=== PATIENT | male | born 1950 | race Caucasian/White ===

== ENCOUNTER 2018-03-19 08:06 | Inpatient (IN) ==
--- OUTSIDE RECORDS SUMMARY | 2018-03-19 08:16 | External Medical Summary | Referral Summary ---
:1950 Author Organization [facility] Address [address] [place] [address] [place] [id number] Care Team Providers Name Role Phone Ken Salgado V Primary Care Physician Encounter VC Date(s): 05/28/17 - 05/28/17 [facility] [address] [place] [phone] [place] Discharge Disposition: 01-Home or Self Care Attending Physician: Ken Salgado MD Admitting Physician: Ken Salgado MD Vital Signs Most recent to oldest [Reference Range]: 1 Blood Pressure [90-140/60-90 mmHg] 148/78 mmHg *HI* (05/28/17 9:15 AM) Problem List Condition Effective Dates Status Health Status Informant Arthritis(Confirmed) Active Chronic lymphocytic leukemia (CLL), Active B-cell(Confirmed) Sleep related Active hypoventilation/hypoxemia in other disease(Confirmed) Bronchitis, not spec Active acute/chronic(Confirmed)1 COPD(Confirmed) Active Cardiac dysrhythmia, Active unspecified(Confirmed)2 Hyperplastic polyp(Confirmed)3 2009 Active Dyslipidemia(Confirmed) Active Rib fractures(Confirmed) < 06/19/14 Resolved Unspecified hearing loss(Confirmed) Active Morbid obesity(Confirmed) Active patient Obesity (disorder)(Confirmed) Active Severe obstructive sleep Active apnea(Confirmed) Atrial fibrillation Active (disorder)(Confirmed) Other emphysema(Confirmed)4 Active Pure hypercholesterolemia(Confirmed) Active Sleep apnea (disorder)(Confirmed)5 Active Type 2 diabetes mellitus, Active controlled(Confirmed) Varicella w/o Active complication(Confirmed)6 1See conversion document.2See conversion document.3See NextGen.4See conversion document.5C-pap. See NextGen.6See conversion document. Allergies, Adverse Reactions, Alerts Substance Reaction Severity Status lovastatin Active Medications atorvastatin 10 mg oral tablet See Instructions, TAKE ONE TABLET BY MOUTH ONCE DAILY, # 90 tabs, 2 Refill(s), eRx: [place] [id number] Start Date: 10/06/16 Status: OrderedCo-Q10 100 mg, Oral, BID, 0 Refill(s) Start Date: 03/15/14 Status: Ordereddigoxin 250 mcg (0.25 mg) oral tablet See Instructions, TAKE ONE TABLET BY MOUTH ONCE DAILY, # 30 tabs, 5 Refill(s), eRx: [place] [id number], TAKE ONE TABLET BY MOUTH ONCE DAILY Start Date: 04/30/17 Status: OrderedDilTIAZem Hydrochloride ER 360 mg/24 hours oral capsule, extended release See Instructions, TAKE ONE CAPSULE BY MOUTH ONCE DAILY, # 90 caps, eRx: [place] [id number] Start Date: 04/30/17 Status: OrderedEliquis 5 mg oral tablet 5 mg 1 tabs, Oral, BID, # 180 tabs, 0 Refill(s), Pharmacy: [place] [id number] Start Date: 05/08/17 Status: OrderedGlucometer strips (DME) DME Item USE TO CHECK BLOOD SUGAR 1 TIME DAILY ONE TOUCH ULTRA BLUE FOR DIABETES TYPE 2E11.9, See Instructions, # 100 Each, 0 Refill(s), Pharmacy: [place] [id number], USE TO CHECK BLOOD SUGAR 1 TIME DAILY ONE TOUCH ULTRA BLUE FOR DIABETES TYPE 2... Start Date: 09/18/15 Status: OrderedGlucometer strips (DME) DME Item PT USES ONE T OUCH ULTRA BLUE TEST STRIPS TO CHECK BLOOD SUGAR ONE TIME DAILY DX E11.9, See Instructions, # 100 Each, 1 Refill(s), Pharmacy: [place] [id number], PT USES ONE T OUCH ULTRA BLUE TEST STRIPS TO CHECK BLOOD SUGAR ONE TIME NICOLAS... Start Date: 01/29/17 Status: OrderedMiscellaneous DME DME Item One touch ultra 2 test strips. Test once daily. Dx:250.00, See Instructions, # 1 boxes,0 Refill(s), Pharmacy: [place] [id number], One touch ultra 2 test strips. ; Test once daily. ; Dx:250.00, Supply Start Date: 04/04/15 Status: OrderedMiscellaneous DME DME Item Delica lancets Test once daily Dx: 250.00, See Instructions, # 1 boxes, 0 Refill(s), Pharmacy: [place] [id number], Deidre lancets; Test once daily; Dx: 250.00, Supply Start Date: 04/04/15 Status: OrderedMiscellaneous DME DME Item ONE TOUCH ULTRA BLUE T EST STRIPS TO CHECK BS ONE TIME DAILY FOR DX E11.9, See Instructions, # 100 Each, 0 Refill(s), Pharmacy: [place] [id number], ONE TOUCH ULTRA BLUE T EST STRIPS TO CHECK BS ONE TIME DAILY FOR DX E11.9 , Supply Start Date: 10/06/16 Status: OrderedONE TOUCH ULTRA BLUE TEST STP See Instructions, USE ONE STRIP TO CHECK GLUCOSE ONCE DAILY, # 100 strip, eRx: [place] [id number], USE ONE STRIP TO CHECK GLUCOSE ONCE DAILY Start Date: 06/09/16 Status: OrderedSpiriva 18 mcg inhalation capsule See Instructions, INHALE ONE DOSE BY MOUTH ONCE DAILY, # 30 caps, 5 Refill(s), eRx: [place] [id number] Start Date: 02/06/17 Status: OrderedSymbicort 160 mcg-4.5 mcg/inh inhalation aerosol See Instructions, INHALE TWO PUFFS BY MOUTH IN THE MORNING AND IN THE EVENING, # 3 Each, 3 Refill(s), Pharmacy: [place] [id number] Start Date: 07/18/16 Status: Orderedtriamterene-hydrochlorothiazide 37.5 mg-25 mg oral tablet See Instructions, TAKE ONE TABLET BY MOUTH ONCE DAILY, # 90 tabs, eRx: [place] [id number] Start Date: 04/30/17 Status: OrderedTylenol Extra Strength 500 mg, Oral, q6hr, 0 Refill(s) Start Date: 03/15/14 Status: Ordered Immunizations Given and Recorded Vaccine Date Status Refusal Reason pneumococcal 23-polyvalent vaccine 10/08/16 Given pneumococcal 23-polyvalent vaccine 02/22/08 Recorded influenza virus vaccine, inactivated 07/08/16 Given influenza virus vaccine, inactivated 06/01/15 Given influenza virus vaccine, inactivated 08/14/14 Recorded pneumococcal 13-valent conjugate vaccine 09/05/15 Given influenza virus vaccine, live 06/16/11 Given tetanus-diphth toxoids (Td) adult/adol 08/18/97 Given Procedures Procedure Date Related Diagnosis Body Site Cancer of skin, squamous cell1 10/02/16 Hernia repair2 2014 Knee replacement3 2014 Atrial fibrillation4 2013 Rib fractures5 2013 Pneumonia6 2011 Colonoscopy7 08/08/10 Knee replacement8 12/24/09 Atrial flutter9 2009 Catheter ablation for cardiac arrhythmia 2010 Joint domokhvntvx89 2009 Transesophageal echo11 2009 Inguinal herniorrhaphy - 1992 Circumcision 1949 1left forearm, removed in the operating [id number] ventral hernia [id number] with rib fractures and hypoxemia.3Tfmkyzyultuaotv1Fnykencwmrlu xrirl6Bzxvo4Zkhvkiggavdqrfw64Wyv conversion document.11See NextGen.12Left Social History Social History Type Response Smoking Status Former smoker; Tobacco use per day: More than 1 pack; Number of years: 40; Total pack years: 80; entered on: 03/15/14 Assessment and Plan Extracted from: Title: Ambulatory Patient Education Author: Garrick Wright RN Date: 05/28/17 Preventive Health Exercising to Stay Healthy Exercising regularly is important. It has many health benefits, such as: Improving your overall fitness, flexibility, and endurance. Increasing your bone density. Helping with weight control. Decreasing your body fat. Increasing your muscle strength. Reducing stress and tension. Improving your overall health. In order to become healthy and stay healthy, it is recommended that you do moderate-intensity and vigorous-intensity exercise. You can tell that you are exercising at a moderate intensity if you have a higher heart rate and faster breathing, but you are still able to hold a conversation. You can tell that you are exercising at a vigorous intensity if you are breathing much harder and faster and cannot hold a conversation while exercising. HOW OFTEN SHOULD I EXERCISE? Choose an activity that you enjoy and set realistic goals. Your health care provider can help you to make an activity plan that works for you. Exercise regularly as directed by your health care provider. This may include: Doing resistance training twice each week, such as: Push-ups. Sit-ups. Lifting weights. Using resistance bands. Doing a given intensity of exercise for a given amount of time. Choose from these options: 150 minutes of moderate-intensity exercise every week. 75 minutes of vigorous-intensity exercise every week. A mix of moderate-intensity and vigorous-intensity exercise every week. Children, women, people who are out of shape, people who are overweight, and older adults may need to consult a health care provider for individual recommendations. If you have any sort of medi omkar condition, be sure to consult your health care provider before starting a new exercise program. WHAT ARE SOME EXERCISE IDEAS? Some moderate-intensity exercise ideas include: Walking at a rate of 1 mile in 15 minutes. Biking. Hiking. Golfing. Dancing. Some vigorous-intensity exercise ideas include: Walking at a rate of at least 4.5 miles per hour. Jogging or running at a rate of 5 miles per hour. Biking at a rate of at least 10 miles per hour. Lap swimming. Roller-skating or in-line skating. Cross-country skiing. Vigorous competitive sports, such as football, basketball, and soccer. Jumping rope. Aerobic dancing. WHAT ARE SOME EVERYDAY ACTIVITIES THAT CAN HELP ME TO GET EXERCISE? Yard work, such as: Pushing a vocational training teacher. Raking and bagging leaves. Washing and waxing your car. Pushing a stroller. Shoveling snow. Gardening. Washing windows or floors. HOW CAN I BE MORE ACTIVE IN MY DAY-TO-DAY ACTIVITIES? Use the stairs instead of the elevator. Take a walk during your lunch break. If you drive, park your car farther away from work or school. If you take public transportation, get off one stop early and walk the rest of the way. Make all of your phone calls while standing up and walking around. Get up, stretch, and walk around every 30 minutes throughout the day. WHAT GUIDELINES SHOULD I FOLLOW WHILE EXERCISING? Do not exercise so much that you hurt yourself, feel dizzy, or get very short of breath. Consult your health care provider before starting a new exercise program. Wear comfortable clothes and shoes with good support. Drink plenty of water while you exercise to prevent dehydration or heat stroke. Body water is lost during exercise and must be replaced. Work out until you breathe faster and your heart beats faster. This information is not intended to replace advice given to you by your health care provider. Make sure you discuss any questions you have with your health care provider. Document Released: 08/29/2011 Document Revised: 08/17/2015 Document Reviewed: 12/28/2014 [employer] Interactive Patient Education 2017 [employer] Fall Prevention in the Home Falls can cause injuries. They can happen to people of all ages. There are many things you can do to make your home safe and to help prevent falls. WHAT CAN I DO ON THE OUTSIDE OF MY HOME? Regularly fix the edges of walkways and driveways and fix any cracks. Remove anything that might make you trip as you walk through a door, such as a raised step or threshold. Trim any bushes or trees on the path to your home. Use bright outdoor lighting. Clear any walking paths of anything that might make someone trip, such as rocks or tools. Regularly check to see if handrails are loose or broken. Make sure that both sides of any steps have handrails. Any raised decks and porches should have guardrails on the edges. Have any leaves, snow, or ice cleared regularly. Use sand or salt on walking paths during winter. Clean up any spills in your garage right away. This includes oil or grease spills. WHAT CAN I DO IN THE BATHROOM? Use night lights. Install grab bars by the toilet and in the tub and shower. Do not use towel bars as grab bars. Use non-skid mats or decals in the tub or shower. If you need to sit down in the shower, use a plastic, non-slip stool. Keep the floor dry. Clean up any water that spills on the floor as soon as it happens. Remove soap buildup in the tub or shower regularly. Attach bath mats securely with double-sided non-slip rug tape. Do not have throw rugs and other things on the floor that can make you trip. WHAT CAN I DO IN THE BEDROOM? Use night lights. Make sure that you have a light by your bed that is easy to reach. Do not use any sheets or blankets that are too big for your bed. They should not hang down onto the floor. Have a firm chair that has side arms. You can use this for support while you get dressed. Do not have throw rugs and other things on the floor that can make you trip. WHAT CAN I DO IN THE KITCHEN? Clean up any spills right away. Avoid walking on wet floors. Keep items that you use a lot in hpcn-ik-cwuuj places. If you need to reach something above you, use a strong step stool that has a grab bar. Keep electrical cords out of the way. Do not use floor dominican or wax that makes floors slippery. If you must use wax , use non-skid floor wax. Do not have throw rugs and other things on the floor that can make you trip. WHAT CAN I DO WITH MY STAIRS? Do not leave any items on the stairs. Make sure that there are handrails on both sides of the stairs and use them. Fix handrails that are broken or loose. Make sure that handrails are as long as the stairways. Check any carpeting to make sure that it is firmly attached to the stairs. Fix any carpet that is loose or worn. Avoid having throw rugs at the top or bottom of the stairs. If you do have throw rugs, attach them to the floor with carpet tape. Make sure that you have a light switch at the top of the stairs and the bottom of the stairs. If you do not have them, ask someone to add them for you. WHAT ELSE CAN I DO TO HELP PREVENT FALLS? Wear shoes that: Do not have high heels. Have rubber bottoms. Are comfortable and fit you well. Are closed at the toe. Do not wear sandals. If you use a stepladder: Make sure that it is fully opened. Do not climb a closed stepladder. Make sure that both sides of the stepladder are locked into place. Ask someone to hold it for you, if possible. Clearly nathan and make sure that you can see: Any grab bars or handrails. First and last steps. Where the edge of each step is. Use tools that help you move around (mobility aids) if they are needed. These include: Canes. Walkers. Scooters. Crutches. Turn on the lights when you go into a dark area. Replace any light bulbs as soon as they burn out. Set up your furniture so you have a clear path. Avoid moving your furniture around. If any of your floors are uneven, fix them. If there are any pets around you, be aware of where they are. Review your medicines with your doctor. Some medicines can make you feel dizzy. This can increase your chance of falling. Ask your doctor what other things that you can do to help prevent falls. This information is not intended to replace advice given to you by your health care provider. Make sure you discuss any questions you have with your health care provider. Document Released: 05/23/2010 Document Revised: 12/11/2015 Document Reviewed: 08/31/2015 [employer] Patient Education 2017 [employer] No follow up information was provided.
--- OUTSIDE RECORDS SUMMARY | 2018-03-19 08:16 | External Medical Summary | Referral Summary ---
:1950 Author Organization [facility] Address [address] [place] [address] Care Team Providers Name Role Phone Ken Salgado V Primary Care Physician Encounter VC Date(s): 12/30/17 - 12/31/17 [facility] [address] [place] [address] [place] [phone] Encounter Diagnosis Atrial fibrillation (disorder) (Discharge Diagnosis) - 12/31/17 S/P TAVR (12/30/17) (Discharge Diagnosis) - 12/31/17 Aortic valve stenosis (Discharge Diagnosis) - 12/31/17 Type 2 diabetes mellitus, controlled (Discharge Diagnosis) - 12/31/17 Chronic lymphocytic leukemia (CLL), B-cell (Discharge Diagnosis) - 12/31/17 Discharge Disposition: 01-Home or Self Care Attending Physician: Julien Shelton MD Admitting Physician: Julien Shelton MD Referring Physician: Julien Shelton MD Vital Signs Most recent to oldest [Reference Range]: 1 Temperature Tympanic [36.6-38.1 degC] 36.4 degC *LOW* (12/30/17 8:42 AM) Temperature Temporal Artery [36.3-37.8 degC] 36.9 degC (12/31/17 4:00 AM) Peripheral Pulse Rate [60-100 bpm] 106 bpm *HI* (12/31/17 8:45 AM) Peripheral Pulse Rate with Activity 127 bpm (12/31/17 8:45 AM) Heart Rate Monitored [60-100 bpm] 107 bpm *HI* (12/31/17 2:00 PM) Respiratory Rate 20 br/min (12/31/17 2:03 PM) Blood Pressure [90-140/60-90 mmHg] 130/82 mmHg (12/31/17 2:00 PM) Systolic Blood Pressure with Activity 148 mmHg (12/31/17 8:45 AM) Diastolic Blood Pressure with Activity 91 mmHg (12/31/17 8:45 AM) Mean Arterial Pressure, Cuff 121 mmHg (12/31/17 2:00 PM) SpO2 94 % (12/31/17 1:00 PM) Problem List Condition Effective Dates Status Health Status Informant Acute pain(Confirmed) Active Aortic valve stenosis(Confirmed) Active Arthritis(Confirmed) Active Chronic lymphocytic leukemia (CLL), Active B-cell(Confirmed) Sleep related Active hypoventilation/hypoxemia in other disease(Confirmed) Bronchitis, not spec Active acute/chronic(Confirmed)1 COPD(Confirmed) Active Cardiac dysrhythmia, Active unspecified(Confirmed)2 Hyperplastic polyp(Confirmed)3 2009 Active Dyslipidemia(Confirmed) Active Rib fractures(Confirmed) < 06/19/14 Resolved Unspecified hearing loss(Confirmed) Active S/P TAVR (transcatheter aortic valve Active replacement)(Confirmed) Impaired gas exchange(Confirmed)4 Active Morbid obesity(Confirmed) Active patient Obesity (disorder)(Confirmed) Active Severe obstructive sleep Active apnea(Confirmed) Atrial fibrillation Active (disorder)(Confirmed) Other emphysema(Confirmed)5 Active Pure hypercholesterolemia(Confirmed) Active Sleep apnea (disorder)(Confirmed)6 Active Tissue perfusion Active alteration(Confirmed)7 Type 2 diabetes mellitus, Active controlled(Confirmed) Varicella w/o Active complication(Confirmed)8 1See conversion document.2See conversion document.3See NextGen.4Problem added automatically by system based on initiation of Impaired Gas Exchange Plan of [id number] conversion document.6C-pap. See NextGen.7Problem added automatically by system based on initiation of Tissue Perfusion Cerebral Plan of Thxh9Bsy conversion document. Allergies, Adverse Reactions, Alerts Substance Reaction Severity Status lovastatin Active Medications aspirin 81 mg oral tablet, chewable 81 mg 1 tabs, Oral, Daily, 0 Refill(s) Start Date: 12/31/17 Status: Orderedatorvastatin 10 mg oral tablet 10 mg 1 tabs, Oral, Daily, # 90 tabs, 1 Refill(s), Pharmacy: [id number] Start Date: 07/05/17 Status: Orderedclopidogrel 75 mg oral tablet 75 mg 1 tabs, Oral, Daily, # 90 tabs, 3 Refill(s), other reason (Rx) Start Date: 12/31/17 Status: OrderedCo-Q10 100 mg, Oral, BID, 0 Refill(s) Start Date: 03/15/14 Status: OrderedDilTIAZem Hydrochloride ER 360 mg/24 hours oral capsule, extended release 360 mg 1 caps, Oral, Daily, # 90 caps, 1 Refill(s), Pharmacy: [id number] Start Date: 08/04/17 Status: Orderedfurosemide 20 mg oral tablet 20 mg 1 tabs, Oral, Daily, # 90 tabs, 3 Refill(s), other reason (Rx) Start Date: 12/31/17 Status: OrderedmetFORMIN 1,000 mg, Oral, qAM, Resume on 01/02/18, 0 Refill(s) Start Date: 12/30/17 Status: OrderedmetFORMIN 500 mg, Oral, qPM, Resume on 01/02/18, 0 Refill(s) Start Date: 12/30/17 Status: Orderedpotassium chloride 10 mEq oral tablet, extended release 10 mEq 1 tabs, Oral, Daily, # 90 tabs, 3 Refill(s), other reason (Rx) Start Date: 12/31/17 Status: OrderedSpiriva 18 mcg, Inhalation, Daily, 0 Refill(s) Start Date: 12/03/17 Status: OrderedSymbicort 160 mcg-4.5 mcg/inh inhalation aerosol 2 puffs, Inhalation, BID, 0 Refill(s) Start Date: 12/03/17 Status: OrderedTylenol Extra Strength 500 mg, Oral, q6hr, as needed for pain, 0 Refill(s) Start Date: 03/15/14 Status: Orderedwarfarin 5 mg oral tablet 5 mg 1 tabs, Oral, Daily, # 30 tabs, 3 Refill(s), other reason (Rx) Start Date: 12/31/17 Status: Ordered Results Blood Gases Most recent to oldest [Reference Range]: 1 pH Venous POC [7.32-7.42] 7.38 (12/30/17 7:41 AM) PCO2 Venous POC [41-51 mmHg] 42 mmHg (12/30/17 7:41 AM) PO2 Venous POC [80-100 mmHg] 124 mmHg *HI* (12/30/17 7:41 AM) Total CO2 Venous POC [25-29 mEq/L] 26 mEq/L (12/30/17 7:41 AM) Bicarbonate Venous POC [24-28 mEq/L] 25 mEq/L (12/30/17 7:41 AM) Base Excess Venous POC [0-4] 0 (12/30/17 7:41 AM) O2 Saturation Venous POC [90.0-97.0 %] 99.0 % *HI* (12/30/17 7:41 AM) Hematology Most recent to oldest [Reference Range]: 1 WBC [4.8-10.8 10*3/uL] 27.4 10*3/uL *HI* (12/31/17 4:01 AM) RBC [4.60-6.20] 3.88 *LOW* (12/31/17 4:01 AM) Hgb [14.0-18.0 gm/dL] 11.3 gm/dL *LOW* (12/31/17 4:01 AM) Hct [42.0-52.0 %] 35.4 % *LOW* (12/31/17 4:01 AM) MCV [82.0-99.0 fL] 91.2 fL (12/31/17 4:01 AM) MCH [27.0-32.0 pg] 29.1 pg (12/31/17 4:01 AM) MCHC [32.0-36.0 gm/dL] 31.9 gm/dL *LOW* (12/31/17 4:01 AM) RDW [11.5-14.5 %] 15.8 % *HI* (12/31/17 4:01 AM) Platelet [150-400 10*3/uL] 131 10*3/uL *LOW* (12/31/17 4:01 AM) MPV [9.4-12.3 fL] 10.4 fL (12/31/17 4:01 AM) Coagulation Most recent to oldest [Reference Range]: 1 INR [0.9-1.2] 1.1 (12/31/17 12:44 PM) PTT [25.0-35.0 seconds] 275.8 seconds 1 *HHI* (12/30/17 9:36 AM) 1Result Comment: Critical value called, and read-back verified. Called to Almaz Hearn 12/30/2017 10:21Chemistry Most recent to oldest [Reference Range]: 1 Sodium Lvl [136-144 mEq/L] 136 mEq/L (12/31/17 4:01 AM) Potassium Lvl [3.6-5.1 mEq/L] 3.7 mEq/L 1 (12/31/17 4:01 AM) Chloride [99-109 mEq/L] 104 mEq/L (12/31/17 4:01 AM) CO2 [22-32 mEq/L] 26 mEq/L (12/31/17 4:01 AM) AGAP [3-20 mEq/L] 6 mEq/L (12/31/17 4:01 AM) BUN [4-20 mg/dL] 16 mg/dL (12/31/17 4:01 AM) Glucose Lvl [70-100 mg/dL] 177 mg/dL *HI* (12/31/17 4:01 AM) Creatinine Lvl [0.64-1.27 mg/dL] 0.99 mg/dL (12/31/17 4:01 AM) eGFR [>60 mL/min] >60 mL/min 2 (12/31/17 4:01 AM) Calcium Lvl [8.6-10.0 mg/dL] 7.5 mg/dL *LOW* (12/31/17 4:01 AM) Magnesium Lvl [1.8-2.5 mg/dL] 1.9 mg/dL (12/30/17 9:36 AM) Sodium Venous NPT [136-144 mEq/L] 139 mEq/L (12/30/17 7:41 AM) Potassium Venous NPT [3.6-5.1 mEq/L] 3.7 mEq/L 3 (12/30/17 7:41 AM) Calcium Ionized Venous NPT [1.19-1.41 mmol/L] 1.12 mmol/L *LOW* (12/30/17 7:41 AM) Glucose Venous NPT [70-100 mg/dL] 168 mg/dL *HI* (12/30/17 7:41 AM) HCT Venous NPT 36.0 % (12/30/17 7:41 AM) HGB Khanh NPT 12.2 gm/dL (12/30/17 7:41 AM) Activated Clotting Time NPT [100-146 seconds] 159 seconds *HI* (12/30/17 8:35 AM) Blood Glucose, Capillary [70-100 mg/dL] 178 mg/dL *HI* (12/30/17 5:35 AM) 1Result Comment: Hemolyzed specimen. The following tests may be affected: ALT, AST, Ammonia, Iron, Potassium, LDH, Amylase, CPK, and Total Bilirubin.2Result Comment : Multiply eGFR results by 1.21 for race.3Result Comment: This test was performed on a whole blood specimen. The presence or absence of hemolysis cannot be assessed. Hemolysis can falsely elevate potassium levels. Normals are for venous specimens only.Blood Bank Results Most recent to oldest [Reference Range]: 1 ABO/Rh AB POS (12/30/17 5:51 AM) Antibody Screen Tube NEG (12/30/17 5:51 AM) Immunizations Given and Recorded Vaccine Date Status Refusal Reason pneumococcal 23-polyvalent vaccine 10/08/16 Given pneumococcal 23-polyvalent vaccine 02/22/08 Recorded influenza virus vaccine, inactivated 07/08/16 Given influenza virus vaccine, inactivated 06/01/15 Given influenza virus vaccine, inactivated 08/14/14 Recorded pneumococcal 13-valent conjugate vaccine 09/05/15 Given influenza virus vaccine, live 06/16/11 Given tetanus-diphth toxoids (Td) adult/adol 08/18/97 Given Procedures Procedure Date Related Diagnosis Body Site Status Replacement Aortic Valve Transcatheter 12/30/17 Completed Transfemoral Approach1 Catheterization Left Heart with 12/09/17 Completed Coronary Angiography2 Cancer of skin, squamous cell3 10/02/16 Completed Hernia repair4 2013 Completed Knee replacement5 2013 Completed Atrial fibrillation6 2012 Completed Rib fractures7 2012 Completed Pneumonia8 2010 Completed Colonoscopy9 08/08/10 Completed Knee dglsbbuehnw56 12/24/09 Completed Atrial bucwuyl81 2010 Completed Catheter ablation for cardiac 2009 Completed arrhythmia Joint asvqkkkjmjz28 2010 Completed Transesophageal echo13 2009 Completed Inguinal herniorrhaphy - xsvzccymtg88 1992 Completed Circumcision 1948 Completed 1auto-populated from documented surgical wqro5mkji-qrlhiduwi from documented surgical ycmi7mhci forearm, removed in the operating hytr8Ukgivqllepht ventral hernia rlavxs1Lzig0Njpypzdeoiyxvhy2Webbtbtkixch with rib fractures and hypoxemia.3Wzrrxmoldkzenoc9Lihbtzcbbsxg nqffw30Afiat94Dzjgrmfdwojwwni41Bxp conversion document.13See NextGen.14Left Social History Social History Type Response Smoking Status Former smoker; Tobacco use per day: More than 1 pack; Number of years: 40; Total pack years: 80; entered on: 03/15/14
--- OUTSIDE RECORDS SUMMARY | 2018-03-19 08:16 | External Medical Summary | Referral Summary ---
:1950 Author Organization [facility] Address [address] [place] [address] Care Team Providers Name Role Phone Ken Salgado V Primary Care Physician Favio Cat Primary Care Physician Encounter [facility] [id number] Date(s): 11/18/17 - 11/18/17 [facility] [address], [place] [address] Encounter Diagnosis Atrial fibrillation (disorder) (Discharge Diagnosis) - 11/18/17 Aortic stenosis (Discharge Diagnosis) - 11/18/17 COPD (chronic obstructive pulmonary disease) (Discharge Diagnosis) - 11/18/17 Obesity (Discharge Diagnosis) - 11/18/17 Severe sleep apnea (Discharge Diagnosis) - 11/18/17 Chronic lymphocytic leukemia (CLL), B-cell (Discharge Diagnosis) - 11/18/17 Discharge Disposition: 01-Home or Self Care Attending Physician: Hero Galdamez MD Admitting Physician: Hero Galdamez MD Vital Signs Most recent to oldest [Reference Range]: 1 Peripheral Pulse Rate [60-100 bpm] 84 bpm (11/18/17 11:25 AM) Blood Pressure [90-140/60-90 mmHg] 140/88 mmHg (11/18/17 11:25 AM) Problem List Condition Effective Dates Status [...] Active Medications atorvastatin 10 mg oral tablet 10 mg 1 tabs, Oral, Daily, # 90 tabs, 1 Refill(s), Pharmacy: [facility] [id number] Start Date: 07/05/17 Status: OrderedCo-Q10 100 mg, Oral, BID, 0 Refill(s) Start Date: 03/15/14 Status: Ordereddigoxin 250 mcg (0.25 mg) oral tablet See Instructions, TAKE ONE TABLET BY MOUTH ONCE DAILY, # 30 tabs, 5 Refill(s), eRx: [facility] [id number], TAKE ONE TABLET BY MOUTH ONCE DAILY Start Date: 04/30/17 Status: OrderedDilTIAZem Hydrochloride ER 360 mg/24 hours oral capsule, extended release 360 mg 1 caps, Oral, Daily, # 90 caps, 1 Refill(s), Pharmacy: [facility] [id number] Start Date: 08/04/17 Status: OrderedEliquis 5 mg oral tablet 5 mg 1 tabs, Oral, BID, # 180 tabs, 1 Refill(s), Pharmacy: [facility] [id number] Start Date: 08/04/17 Status: OrderedGlucometer strips (DME) DME Item USE TO CHECK BLOOD SUGAR 1 TIME DAILY ONE TOUCH ULTRA BLUE FOR DIABETES TYPE 2E11.9, See Instructions, # 100 Each, 0 Refill(s), Pharmacy: [facility] [id number], USE TO CHECK BLOOD SUGAR 1 TIME DAILY ONE TOUCH ULTRA BLUE FOR DIABETES TYPE 2... Start Date: 09/18/15 Status: OrderedGlucometer strips (DME) DME Item PT USES ONE T OUCH ULTRA BLUE TEST STRIPS TO CHECK BLOOD SUGAR ONE TIME DAILY DX E11.9, See Instructions, # 100 Each, 1 Refill(s), Pharmacy: [facility] [id number], PT USES ONE T OUCH ULTRA BLUE TEST STRIPS TO CHECK BLOOD SUGAR ONE TIME NICOLAS... Start Date: 01/29/17 Status: OrderedmetFORMIN 500 mg oral tablet 500 mg 1 tabs, Oral, TID, 2 in the morning, 1 in the evening, # 60 tabs, 0 Refill(s) Start Date: 11/18/17 Status: OrderedMiscellaneous DME DME Item One touch ultra 2 test strips. Test once daily. Dx:250.00, See Instructions, # 1 boxes,0 Refill(s), Pharmacy: [facility] [id number], One touch ultra 2 test strips. ; Test once daily. ; Dx:250.00, Supply Start Date: 04/04/15 Status: OrderedMiscellaneous DME DME Item Delica lancets Test once daily Dx: 250.00, See Instructions, # 1 boxes, 0 Refill(s), Pharmacy: [facility] [address], Delica lancets; Test once daily; Dx: 250.00, Supply Start Date: 04/04/15 Status: OrderedMiscellaneous DME DME Item ONE TOUCH ULTRA BLUE T EST STRIPS TO CHECK BS ONE TIME DAILY FOR DX E11.9, See Instructions, # 100 Each, 0 Refill(s), Pharmacy: [facility] [id number], ONE TOUCH ULTRA BLUE T EST STRIPS TO CHECK BS ONE TIME DAILY FOR DX E11.9 , Supply Start Date: 10/06/16 Status: OrderedONE TOUCH ULTRA BLUE TEST STP See Instructions, USE ONE STRIP TO CHECK GLUCOSE ONCE DAILY, # 100 strip, eRx: [facility] [id number], USE ONE STRIP TO CHECK GLUCOSE ONCE DAILY Start Date: 06/09/16 Status: OrderedSpiriva 18 mcg inhalation capsule See Instructions, INHALE ONE DOSE BY MOUTH ONCE DAILY, # 30 caps, 5 Refill(s), eRx: [facility] [id number] Start Date: 02/06/17 Status: OrderedSymbicort 160 mcg-4.5 mcg/inh inhalation aerosol See Instructions, INHALE TWO PUFFS BY MOUTH IN THE MORNING AND IN THE EVENING, # 3 Each, 3 Refill(s), Pharmacy: [facility] [id number] Start Date: 07/18/16 Status: Orderedtriamterene-hydrochlorothiazide 37.5 mg-25 mg oral tablet See Instructions, TAKE ONE TABLET BY MOUTH ONCE DAILY, # 90 tabs, 1 Refill(s), eRx: [id number] Start Date: 07/29/17 Status: OrderedTylenol Extra Strength 500 mg, Oral, [...] Procedure Date Related Diagnosis Body Site Status Cancer of skin, squamous cell1 10/02/16 Completed Hernia repair2 2013 Completed Knee replacement3 2013 Completed Atrial fibrillation4 2012 Completed Rib fractures5 2012 Completed Pneumonia6 2010 Completed Colonoscopy7 08/08/10 Completed Knee replacement8 12/24/09 Completed Atrial flutter9 2009 Completed Catheter ablation for cardiac 2010 Completed arrhythmia Joint zyloaibjuhu09 2009 Completed Transesophageal echo11 2009 Completed Inguinal herniorrhaphy - jibcccboge58 1992 Completed Circumcision 1948 Completed 1left forearm, removed in the operating nfmm8Eciivgjmowpq ventral hernia wccrqd8Tnoa9Bvisgazylwuroml5Hgzuikhdiqqw with rib fractures and hypoxemia.2Epbxtmojoflwoij1Fqozzxnzmcrw ublst8Djqwp8Mtnblgsvkocdnjt42Pyd conversion document.11See NextGen.12Left Social History Social History Type Response Smoking Status Former smoker; Tobacco use per day: More than 1 pack; Number of years: 40; Total pack years: 80; entered on: 03/15/14 Assessment and Plan Extracted from: Title: Office Visit Note Author: Hero Galdamez MD Date: 11/18/17 1.Aortic stenosis 2.Severe sleep apnea 3.Obesity 4.Atrial fibrillation (disorder) 5.COPD (chronic obstructive pulmonary disease) 6.Chronic lymphocytic leukemia (CLL), B-cell Discussion:The patienthas now reacheda stage of severe aortic stenosis and referral foraortic valve replacement is warranted. The patient is clearly complex with multiple conditions and a somewhat adverse long-term outlook. He is to see us in 4-6 monthsor any time if necessary. Referral done to the heart valve team
--- OUTSIDE RECORDS SUMMARY | 2018-03-19 08:16 | External Medical Summary | Referral Summary ---
:1950 Author Organization [facility] Address [address] [place] [address] Care Team Providers Name Role Phone RandytruongKen V Primary Care Physician Favio Cat Primary Care Physician Encounter VC [facility] [id number] Date(s): 11/18/17 - 11/18/17 [facility] [address], [place] [address] Discharge Disposition: 01-Home or Self Care Attending Physician: Hero Galdamez MD Admitting Physician: Hero Galdamez MD Problem List Condition Effective Dates Status Health [...] Daily, # 90 tabs, 1 Refill(s), Pharmacy: [facility] [id number] Start Date: 07/05/17 Status: OrderedCo-Q10 100 mg, Oral, BID, 0 Refill(s) Start Date: 03/15/14 Status: Ordereddigoxin 250 mcg (0.25 mg) oral tablet See Instructions, TAKE ONE TABLET BY MOUTH ONCE DAILY, # 30 tabs, 5 Refill(s), eRx: [facility] [id number], TAKE ONE TABLET BY MOUTH ONCE DAILY Start Date: 04/30/17 Status: OrderedDilTIAZem Hydrochloride ER 360 mg/24 hours oral capsule, extended release 360 mg 1 caps, Oral, Daily, # 90 caps, 1 Refill(s), Pharmacy: [facility] [id number] Start Date: 08/04/17 Status: OrderedEliquis 5 mg oral tablet 5 mg 1 tabs, Oral, BID, # 180 tabs, 1 Refill(s), Pharmacy: [facility] [id number] Start Date: 08/04/17 Status: OrderedGlucometer strips (DME) DME Item USE TO CHECK BLOOD SUGAR 1 TIME DAILY ONE TOUCH ULTRA BLUE FOR DIABETES TYPE 2E11.9, See Instructions, # 100 Each, 0 Refill(s), Pharmacy: [facility] [id number], USE TO CHECK BLOOD SUGAR 1 TIME DAILY ONE TOUCH ULTRA BLUE FOR DIABETES TYPE 2... Start Date: 09/18/15 Status: OrderedGlucometer strips (DME) DME Item PT USES ONE T OUCH ULTRA BLUE TEST STRIPS TO CHECK BLOOD SUGAR ONE TIME DAILY DX E11.9, See Instructions, # 100 Each, 1 Refill(s), Pharmacy: [facility] [address], PT USES ONE T OUCH ULTRA BLUE [...] See Instructions, # 1 boxes,0 Refill(s), Pharmacy: [facility] [id number], One touch ultra 2 test strips. ; Test once daily. ; Dx:250.00, Supply Start Date: 04/04/15 Status: OrderedMiscellaneous DME DME Item Delica lancets Test once daily Dx: 250.00, See Instructions, # 1 boxes, 0 Refill(s), Pharmacy: [facility] [address], Delica lancets; Test once daily; Dx: 250.00, Supply Start Date: 04/04/15 Status: OrderedMiscellaneous DME DME Item ONE TOUCH ULTRA BLUE T EST STRIPS TO CHECK BS ONE TIME DAILY FOR DX E11.9, See Instructions, # 100 Each, 0 Refill(s), Pharmacy: [facility] [id number], ONE TOUCH ULTRA BLUE T EST STRIPS TO CHECK BS ONE TIME DAILY FOR DX E11.9 , Supply Start Date: 10/06/16 Status: OrderedONE TOUCH ULTRA BLUE TEST STP See Instructions, USE ONE STRIP TO CHECK GLUCOSE ONCE DAILY, # 100 strip, eRx: [facility] [id number], USE ONE STRIP TO CHECK GLUCOSE ONCE DAILY Start Date: 06/09/16 Status: OrderedSpiriva 18 mcg inhalation capsule See Instructions, INHALE ONE DOSE BY MOUTH ONCE DAILY, # 30 caps, 5 Refill(s), eRx: [facility] [id number] Start Date: 02/06/17 Status: OrderedSymbicort 160 mcg-4.5 mcg/inh inhalation aerosol See Instructions, INHALE TWO PUFFS BY MOUTH IN THE MORNING AND IN THE EVENING, # 3 Each, 3 Refill(s), Pharmacy: [facility] [id number] Start Date: 07/18/16 Status: Orderedtriamterene-hydrochlorothiazide 37.5 mg-25 mg oral tablet See Instructions, TAKE ONE TABLET BY MOUTH ONCE DAILY, # 90 tabs, 1 Refill(s), eRx: [facility] [id number] Start Date: 07/29/17 Status: OrderedTylenol Extra Strength [...] flutter9 2009 Completed Catheter ablation for cardiac 2009 Completed arrhythmia Joint gggepsfaafr29 2009 Completed Transesophageal echo11 2009 Completed Inguinal herniorrhaphy - vznlzsqmai61 1992 Completed Circumcision 1948 Completed 1left forearm, removed in the operating qghi1Tputtybmniyb ventral hernia qjxise6Qimo6Rvalnqeyhgycgdo9Khvkinfgzoqo with rib fractures and hypoxemia.9Duvegdinakjfhgh7Gtwsehmzkpvv kldbs2Usgyr0Fbiywvkwojekmpq35Xqg conversion document.11See NextGen.12Left Social History Social History Type Response Smoking Status Former smoker; Tobacco use per day: More than 1 pack; Number of years: 40; Total pack years: 80; entered on: 03/15/14
--- OUTSIDE RECORDS SUMMARY | 2018-03-19 08:16 | External Medical Summary | Referral Summary ---
:1950 Author Organization [facility] Address [address] [place] [address] [place] Sie[place] [address] Care Team Providers Name Role Phone Ken Salgado V Primary Care Physician Encounter VC Date(s): 10/17/16 - 10/17/16 [facility] [address] [place] [address] [place] [phone] [place] Discharge Diagnosis: Squamous cell carcinoma skin of arm Discharge Diagnosis: Visit for suture removal Discharge Disposition: 01-Home or Self Care Attending Physician: Arvin Ramos MD Admitting Physician: Arvin Ramos MD Vital Signs Most recent to oldest [Reference Range]: 1 Temperature Tympanic [36.6-38.1 degC] 36.2 degC *LOW* (10/17/16 10:45 AM) Problem List Condition Effective Dates Status [...] DAILY, # 90 tabs, 2 Refill(s), eRx: [facility] [facility] [id number] Start Date: 10/06/16 Status: OrderedCo-Q10 100 mg, Oral, BID, 0 Refill(s) Start Date: 03/15/14 Status: Ordereddigoxin 250 mcg (0.25 mg) oral tablet See Instructions, TAKE ONE TABLET BY MOUTH ONCE DAILY, # 30 tabs, eRx: [place] [id number] Start Date: 10/06/16 Status: OrderedEliquis 5 mg oral tablet See Instructions, TAKE ONE TABLET BY MOUTH TWICE DAILY, # 180 tabs, eRx: [place] [id number], TAKE ONE TABLET BY MOUTH TWICE DAILY Start Date: 08/06/16 Status: OrderedGlucometer strips (DME) DME Item USE TO CHECK BLOOD SUGAR 1 TIME DAILY ONE TOUCH ULTRA BLUE FOR DIABETES TYPE 2E11.9, See Instructions, # 100 Each, 0 Refill(s), Pharmacy: [place] [id number], USE TO CHECK BLOOD SUGAR 1 TIME DAILY ONE TOUCH ULTRA BLUE FOR DIABETES TYPE 2... Start Date: 09/18/15 Status: OrderedMiscellaneous DME DME Item One touch ultra 2 test strips. Test once daily. Dx:250.00, See Instructions, # 1 boxes,0 Refill(s), Pharmacy: [facility] [address], One touch ultra 2 test strips. ; Test once daily. ; Dx:250.00, Supply Start Date: 04/04/15 Status: OrderedMiscellaneous DME DME Item Delica lancets Test once daily Dx: 250.00, See Instructions, # 1 boxes, 0 Refill(s), Pharmacy: [place] [address], Delica lancets; Test once daily; Dx: 250.00, Supply Start Date: 04/04/15 Status: OrderedMiscellaneous DME DME Item ONE TOUCH ULTRA BLUE T EST STRIPS TO CHECK BS ONE TIME DAILY FOR DX E11.9, See Instructions, # 100 Each, 0 Refill(s), Pharmacy: [place] [address], ONE TOUCH ULTRA BLUE T EST STRIPS TO CHECK BS ONE TIME DAILY FOR DX E11.9 , Supply Start Date: 10/06/16 Status: OrderedONE TOUCH ULTRA BLUE TEST STP See Instructions, USE ONE STRIP TO CHECK GLUCOSE ONCE DAILY, # 100 strip, eRx: [facility], USE ONE STRIP TO CHECK GLUCOSE ONCE DAILY Start Date: 06/09/16 Status: OrderedSpiriva 18 mcg inhalation capsule See Instructions, INHALE ONE DOSE BY MOUTH ONCE DAILY, # 30 caps, 6 Refill(s), Pharmacy: [place] [address], INHALE ONE DOSE BY MOUTH ONCE DAILY Start Date: 07/18/16 Status: OrderedSymbicort 160 mcg-4.5 mcg/inh inhalation aerosol See Instructions, INHALE TWO PUFFS BY MOUTH IN THE MORNING AND IN THE EVENING, # 3 Each, 3 Refill(s), Pharmacy: [place] [id number] Start Date: 07/18/16 Status: OrderedTaztia XT 360 mg/24 hours oral capsule, extended release See Instructions, TAKE ONE CAPSULE BY MOUTH ONCE DAILY, # 90 caps, eRx: [place] [id number], TAKEONE CAPSULE BY MOUTH ONCE DAILY Start Date: 08/06/16 Status: Orderedtriamterene-hydrochlorothiazide 37.5 mg-25 mg oral tablet See Instructions, TAKE ONE TABLET BY MOUTH ONCE DAILY, # 90 tabs, eRx: [facility], TAKE ONE TABLET BY MOUTH ONCE DAILY Start Date: 08/06/16 Status: OrderedTylenol Extra Strength 500 mg, Oral, q6hr, 0 Refill(s) Start Date: 03/15/14 Status: Ordered Results No data available for this section Immunizations Given and Recorded Vaccine Date Status Refusal Reason influenza virus vaccine, inactivated 07/08/16 Given influenza virus vaccine, inactivated 06/01/15 Given influenza virus vaccine, inactivated 08/14/14 Recorded influenza virus vaccine, live 06/16/11 Given pneumococcal 13-valent conjugate vaccine 09/05/15 Given pneumococcal 23-polyvalent vaccine 10/08/16 Given pneumococcal 23-polyvalent vaccine 02/22/08 Recorded tetanus-diphth toxoids (Td) adult/adol 08/18/97 Given Procedures Procedure Date Related Diagnosis Body Site Cancer of skin, squamous cell1 10/02/16 Excision, malignant lesion including margins, 10/02/16 trunk, arms, or legs; excised diameter 1.1 to 2.0 cm Excision, malignant lesion including margins, 10/02/16 trunk, arms, or legs; excised diameter 1.1 to 2.0 cm Repair, intermediate, wounds of scalp, axillae, 10/02/16 trunk and/or extremities (excluding hands and feet); 2.6 cm to 7.5 cm Repair, intermediate, wounds of scalp, axillae, 10/02/16 trunk and/or extremities (excluding hands and feet); 2.6 cm to 7.5 cm Hernia repair2 2013 Knee replacement3 2013 Atrial fibrillation4 2013 Rib fractures5 2012 Pneumonia6 2011 Colonoscopy7 08/08/10 Knee replacement8 12/24/09 Atrial flutter9 2009 Catheter ablation for cardiac arrhythmia 2009 Joint wdzovivxcbb25 2009 Transesophageal echo11 2009 Inguinal herniorrhaphy - hyatqsmiew16 1992 Circumcision 1948 1left forearm, removed in the operating doma5Dbhywxxdqsti ventral hernia lvksut0Ogsq3Mmomtfnpqjkrfet0Tlsfpuzxdzkz with rib fractures and hypoxemia.6Pqvrbvwrhoixsvf7Updszluqwepk deupy5Hltzs4Qutszdvrmzrzvhw06Tpz conversion document.11See NextGen.12Left Social History Social History Type Response Smoking Status Former smoker; Tobacco use per day: More than 1 pack; Number of years: 40; Total pack years: 80 Assessment and Plan Extracted from: Title: Office Visit Note Author: Arvin Ramos MD Date: 10/17/16 Assessment/Plan 1.Visit for suture removal Ordered: Postoperative Est 35404 2.Squamous cell carcinoma skin of arm Ordered: Postoperative Est 28801 Plan:Follow-up when necessary basis. Return to PCP for ongoing medical care. Pathology report did return stating thatthe [facility] ofatypiaor malignancy. Patient was informedto follow-up me on a when necessary basis. He was to continue to perform"dermatologic checks "and if in the future would develop an additional nonhealing ulcerated lesion to return to the office at that time for fu rther evaluation. Patient instructed toreturn to PCP for ongoing medical care.
--- OUTSIDE RECORDS SUMMARY | 2018-03-19 08:16 | External Medical Summary | Referral Summary ---
:1950 Author Organization [facility] Address [address] [place] [address] Care Team Providers Name Role Phone RandyKen guerin Terri Primary Care Physician Encounter VC Date(s): 12/28/17 - 12/28/17 [facility] [address] [place] [address] [place] [phone] Discharge Disposition: 01-Home or Self Care Attending Physician: Julien Shelton MD Admitting Physician: Julien Shelton MD Problem List Condition Effective Dates Status Health Status Informant Aortic valve stenosis(Confirmed) Active Arthritis(Confirmed) Active Chronic [...] tabs, Oral, Daily, 0 Refill(s) Start Date: 12/10/17 Status: Orderedatorvastatin 10 mg oral tablet 10 mg 1 tabs, Oral, Daily, # 90 tabs, 1 Refill(s), Pharmacy: [facility] Start Date: 07/05/17 Status: OrderedCo-Q10 100 mg, Oral, BID, 0 Refill(s) Start Date: 03/15/14 Status: Ordereddigoxin 250 mcg, Oral, Bedtime (once a day), 0 Refill(s) Start Date: 12/03/17 Status: OrderedDilTIAZem Hydrochloride ER 360 mg/24 hours oral capsule, extended release 360 mg 1 caps, Oral, Daily, # 90 caps, 1 Refill(s), Pharmacy: [facility] Start Date: 08/04/17 Status: OrderedEliquis 5 mg oral tablet 5 mg 1 tabs, Oral, BID, # 180 tabs, 1 Refill(s), Pharmacy: [facility] Start Date: 08/04/17 Status: OrderedSpiriva 18 mcg, Inhalation, Daily, 0 Refill(s) Start Date: 12/03/17 Status: OrderedSymbicort 160 mcg-4.5 mcg/inh inhalation aerosol 2 puffs, Inhalation, BID, 0 Refill(s) Start Date: 12/03/17 Status: Orderedtriamterene-hydrochlorothiazide 37.5 mg-25 mg oral capsule 1 caps, Oral, Daily, 0 Refill(s) Start Date: 12/03/17 Status: OrderedTylenol Extra Strength 500 mg, Oral, q6hr, as needed for pain, 0 Refill(s) Start Date: 03/15/14 Status: Ordered Results Hematology Most recent to oldest [Reference Range]: 1 WBC [4.8-10.8 10*3/uL] 36.6 10*3/uL *HI* (12/28/17 8:57 AM) RBC [4.60-6.20] 4.97 (12/28/17 8:57 AM) Hgb [14.0-18.0 gm/dL] 14.8 gm/dL (12/28/17 8:57 AM) Hct [42.0-52.0 %] 44.9 % (12/28/17 8:57 AM) MCV [82.0-99.0 fL] 90.3 fL (12/28/17 8:57 AM) MCH [27.0-32.0 pg] 29.8 pg (12/28/17 8:57 AM) MCHC [32.0-36.0 gm/dL] 33.0 gm/dL (12/28/17 8:57 AM) RDW [11.5-14.5 %] 15.4 % *HI* (12/28/17 8:57 AM) Platelet [150-400 10*3/uL] 169 10*3/uL (12/28/17 8:57 AM) MPV [9.4-12.3 fL] 10.5 fL (12/28/17 8:57 AM) Neutrophils [51-75 %] 22 % *LOW* (12/28/17 8:57 AM) Lymphocytes [20-46 %] 69 % *HI* (12/28/17 8:57 AM) Monocytes [4-11 %] 7 % (12/28/17 8:57 AM) Eosinophils [0-4 %] 2 % (12/28/17 8:57 AM) Basophils [0-2 %] 0 % (12/28/17 8:57 AM) Neutro Absolute [1.90-7.00] 8.05 *HI* (12/28/17 8:57 AM) Lymph Absolute [0.80-3.30] 25.25 *HI* (12/28/17 8:57 AM) Republic Absolute [0.30-1.00] 2.56 *HI* (12/28/17 8:57 AM) Eos Absolute [0.00-0.50] 0.73 *HI* (12/28/17 8:57 AM) Baso Absolute [0.00-0.20] 0.07 (12/28/17 8:57 AM) Nucleated RBC Automated [0 /100 WBC] 0.0 /100 WBC (12/28/17 8:57 AM) Differential Reviewed (12/28/17 8:57 AM) Coagulation Most recent to oldest [Reference Range]: 1 INR [0.9-1.2] 1.0 (12/28/17 8:57 AM) PTT [25.0-35.0 seconds] 27.6 seconds (12/28/17 8:57 AM) Fibrinogen Lvl [187-520 mg/dL] 299 mg/dL (12/28/17 8:57 AM) Chemistry Most recent to oldest [Reference Range]: 1 Sodium Lvl [136-144 mEq/L] 136 mEq/L (12/28/17 8:57 AM) Potassium Lvl [3.6-5.1 mEq/L] 3.8 mEq/L (12/28/17 8:57 AM) Chloride [99-109 mEq/L] 101 mEq/L (12/28/17 8:57 AM) CO2 [22-32 mEq/L] 23 mEq/L (12/28/17 8:57 AM) AGAP [3-20 mEq/L] 12 mEq/L (12/28/17 8:57 AM) BUN [4-20 mg/dL] 18 mg/dL (12/28/17 8:57 AM) Glucose Lvl [70-100 mg/dL] 160 mg/dL *HI* (12/28/17 8:57 AM) Creatinine Lvl [0.64-1.27 mg/dL] 1.07 mg/dL (12/28/17 8:57 AM) eGFR [>60 mL/min] >60 mL/min 1 (12/28/17 8:57 AM) Calcium Lvl [8.6-10.0 mg/dL] 9.0 mg/dL (12/28/17 8:57 AM) Albumin Lvl [3.5-4.8 gm/dL] 4.0 gm/dL (12/28/17 8:57 AM) Total Protein [6.1-7.9 gm/dL] 6.4 gm/dL (12/28/17 8:57 AM) Globulin [1.9-4.3 gm/dL] 2.4 gm/dL (12/28/17 8:57 AM) ALT [17-63 U/L] 23 U/L (12/28/17 8:57 AM) AST [15-41 U/L] 26 U/L (12/28/17 8:57 AM) Alk Phos [26-104 U/L] 58 U/L (12/28/17 8:57 AM) Bili Total [0.2-1.2 mg/dL] 0.5 mg/dL 2 (12/28/17 8:57 AM) BNP [0-99 pg/mL] 121 pg/mL *HI* (12/28/17 8:57 AM) Hgb A1c [4.1-5.6 %] 7.3 % *HI* (12/28/17 8:57 AM) eAvg Glucose 162.8 mg/dL (12/28/17 8:57 AM) 1Result Comment: Multiply eGFR results by 1.21 for race.2Result Comment: Naproxen, specifically the metabolite O-desmethylnaproxen, may cause spurious elevation in Total Bilirubin levels. Immunizations Given and Recorded Vaccine Date Status Refusal Reason pneumococcal 23-polyvalent vaccine 10/08/16 Given pneumococcal 23-polyvalent vaccine 02/22/08 Recorded influenza virus vaccine, inactivated 07/08/16 Given influenza virus vaccine, inactivated 06/01/15 Given influenza virus vaccine, inactivated 08/14/14 Recorded pneumococcal 13-valent conjugate vaccine 09/05/15 Given influenza virus vaccine, live 06/16/11 Given tetanus-diphth toxoids (Td) adult/adol 08/18/97 Given Procedures Procedure Date Related Diagnosis Body Site Status Catheterization Left Heart with 12/09/17 Completed Coronary Angiography1 Cancer of skin, squamous cell2 10/02/16 Completed Hernia repair3 2013 Completed Knee replacement4 2013 Completed Atrial fibrillation5 2012 Completed Rib fractures6 2012 Completed Pneumonia7 2010 Completed Colonoscopy8 08/08/10 Completed Knee replacement9 12/24/09 Completed Atrial liboftu65 2009 Completed Catheter ablation for cardiac 2009 Completed arrhythmia Joint ypmgyfynfml97 2010 Completed Transesophageal echo12 2009 Completed Inguinal herniorrhaphy - svkgwiryrh96 1992 Completed Circumcision 1948 Completed 1auto-populated from documented surgical mtts6gixw forearm, removed in the operating rulj8Hbnlwahiyjho ventral hernia udxvvx7Yhcx1Snjwqlcqflmdyll3Fnibttwlqkcj with rib fractures and hypoxemia.3Waeccnsmxtlheuu7Tsqxmsclvcjf tyrwv5Cbsyr13Uxhiidukskdrjbn94Crk conversion document.12See NextGen.13Left Social History Social History Type Response Smoking Status Former smoker; Tobacco use per day: More than 1 pack; Number of years: 40; Total pack years: 80; entered on: 03/15/14 Assessment and Plan Extracted from: Title: Heart valve clinic note Author: Patrick Chaves Date: 12/25/17 1. Severe, symptomatic, nonrheumatic aortic valve stenosis 2. Paroxysmal atrial fibrillation, On Eliquis. D/Cd as of Tuesday, December 262017. Possibility of conversion to warfarin post-valve implant discussed with the patient. He has been on this previo usly although he did have some difficulty in maintaining therapeutic INR. 3. COPD 4. HTN 5. DRU 6. DM; on metformin. Held as of December 29 7. Chronic lymphocytic leukemia; oncologist is Dr. Paul in [place], [place]. - pre-TAVR CTA shows progressing adenopathy froma previous scan in 2013. This was discussed with Dr. Paul. Imaging compared to scan in [facility] done earlier this year with general ly stable findings. Okay to proceed from an oncology standpoint with TAVR. Procedurereviewedagain withthe patient and .Sovgxo57 minutes spent answering questions and reviewing procedure.Risks reviewed includingminor and major bleeding with potential need for transfusion, vascular injury, limb ischemia, stroke, need for permanent pacemaker, acute kidney injury with potential for temporary or permanent dialysis, coronary occlusion,cardiac perforat ion, cardiac tamponade, need for conversion to open heart surgery, and operative mortality.Anesthesia, including conscious sedation as well as generaland SHERMAN also discussed with the patient. Cu rrently, pt is scheduled for TAVR viatransfemoral accesswith conscious sedationonWeDecember 30, 2017.
--- OUTSIDE RECORDS SUMMARY | 2018-03-19 08:16 | External Medical Summary | Referral Summary ---
:1950 Author Organization [facility] Address [address] [place] [address] Care Team Providers Name Role Phone Ken Salgado V Primary Care Physician Encounter VC Date(s): 01/30/17 - 01/30/17 [facility] [place] [address] [place] [address]- [phone] Discharge Diagnosis: Severe obstructive sleep apnea Discharge Disposition: 01-Home or Self Care Attending Physician: Joyce Taylor Admitting Physician: Joyce Taylor Vital Signs Most recent to oldest [Reference Range]: 1 Peripheral Pulse Rate [60-100 bpm] 86 bpm (01/30/17 10:55 AM) Blood Pressure [90-140/60-90 mmHg] 132/78 mmHg (01/30/17 10:55 AM) SpO2 92 % (01/30/17 10:55 AM) Problem List Condition Effective Dates Status [...] DAILY, # 90 tabs, 2 Refill(s), eRx: [place] [id number] Start Date: 10/06/16 Status: OrderedCo-Q10 100 mg, Oral, BID, 0 Refill(s) Start Date: 03/15/14 Status: Ordereddigoxin 250 mcg (0.25 mg) oral tablet See Instructions, TAKE ONE TABLET BY MOUTH ONCE DAILY, # 30 tabs, 5 Refill(s), eRx: [place] [id number] Start Date: 11/03/16 Status: OrderedDilTIAZem Hydrochloride XR 360 mg/24 hours oral capsule, extended release See Instructions, TAKE ONE CAPSULE BY MOUTH ONCE DAILY, # 90 caps, 1 Refill(s), eRx: [place] [id number] Start Date: 11/06/16 Status: OrderedEliquis 5 mg oral tablet See Instructions, TAKE ONE TABLET BY MOUTH TWICE DAILY, # 180 tabs, 1 Refill(s) , eRx: [place] [id number] Start Date: 11/06/16 Status: OrderedGlucometer strips (DME) DME Item USE TO CHECK BLOOD SUGAR 1 TIME DAILY ONE TOUCH ULTRA BLUE FOR DIABETES TYPE 2E11.9, See Instructions, # 100 Each, 0 Refill(s), Pharmacy: [facility] [id number], USE TO CHECK BLOOD SUGAR 1 TIME DAILY ONE TOUCH ULTRA BLUE FOR DIABETES TYPE 2... Start Date: 09/18/15 Status: OrderedGlucometer strips (DME) DME Item PT USES ONE T OUCH ULTRA BLUE TEST STRIPS TO CHECK BLOOD SUGAR ONE TIME DAILY DX E11.9, See Instructions, # 100 Each, 1 Refill(s), Pharmacy: [facility] [place] [id number], PT USES ONE T OUCH ULTRA BLUE TEST STRIPS TO CHECK BLOOD SUGAR ONE TIME NICOLAS... Start Date: 01/29/17 Status: OrderedMiscellaneous DME DME Item One touch ultra 2 test strips. Test once daily. Dx:250.00, See Instructions, # 1 boxes,0 Refill(s), Pharmacy: [facility] [place] [address], One touch ultra 2 test strips. ; Test once daily. ; Dx:250.00, Supply Start Date: 04/04/15 Status: OrderedMiscellaneous DME DME Item Delica lancets Test once daily Dx: 250.00, See Instructions, # 1 boxes, 0 Refill(s), Pharmacy: [place] [address], Delica lancets; Test once daily; Dx: 250.00, Supply Start Date: 04/04/15 Status: OrderedMiscellaneous DME DME Item ONE TOUCH ULTRA BLUE T EST STRIPS TO CHECK BS ONE TIME DAILY FOR DX E11.9, See Instructions, # 100 Each, 0 Refill(s), Pharmacy: [place] [address], ONE TOUCH ULTRA BLUE T EST STRIPS TO CHECK BS ONE TIME DAILY FOR DX E11.9 , Supply Start Date: 10/06/16 Status: OrderedONE TOUCH ULTRA BLUE TEST STP See Instructions, USE ONE STRIP TO CHECK GLUCOSE ONCE DAILY, # 100 strip, eRx: [place] [id number], USE ONE STRIP TO CHECK GLUCOSE ONCE DAILY Start Date: 06/09/16 Status: OrderedSpiriva 18 mcg inhalation capsule See Instructions, INHALE ONE DOSE BY MOUTH ONCE DAILY, # 30 caps, 6 Refill(s), Pharmacy: [place] [address], INHALE ONE DOSE BY MOUTH ONCE DAILY Start Date: 07/18/16 Status: OrderedSymbicort 160 mcg-4.5 mcg/inh inhalation aerosol See Instructions, INHALE TWO PUFFS BY MOUTH IN THE MORNING AND IN THE EVENING, # 3 Each, 3 Refill(s), Pharmacy: [place] [address] Start Date: 07/18/16 Status: Orderedtriamterene-hydrochlorothiazide 37.5 mg-25 mg oral tablet See Instructions, TAKE ONE TABLET BY MOUTH ONCE DAILY, # 90 tabs, 1 Refill(s), eRx: [place] [id number] Start Date: 11/06/16 Status: OrderedTylenol Extra Strength 500 mg, Oral, [...] of skin, squamous cell1 10/02/16 Hernia repair2 2013 Knee replacement3 2013 Atrial fibrillation4 2013 Rib fractures5 2013 Pneumonia6 2011 Colonoscopy7 08/08/10 Knee replacement8 12/24/09 Atrial flutter9 2009 Catheter ablation for cardiac arrhythmia 2009 Joint jghwqloodgl46 2009 Transesophageal echo11 2009 Inguinal herniorrhaphy - tnqwimjhju70 1992 Circumcision 1948 1left forearm, removed in the operating htnk5Ykxbwlxydbpn ventral hernia mggwze9Jjqw4Dpbbnmxcztjbzuz3Scqibprkctkn with rib fractures and hypoxemia.8Xlptafzvxmhoaxo3Mmoadtadpyqj ikofs4Ufmqe6Tzeifwiidldpyop84Owr conversion document.11See NextGen.12Left Social History Social History Type Response Smoking Status Former smoker; Tobacco use per day: More than 1 pack; Number of years: 40; Total pack years: 80 Assessment and Plan Extracted from: Title: Office Visit Note Author: Joyce Taylor PA-C Date: 01/30/17 Assessment/Plan 1.Severe obstructive sleep apnea -Adequate treatment with CPAP symptomatically and objectivelyat current pressure withexcellent adherence to therapy. Continue CPAP with all sleep at 12cm. Order to [facility] for supplies. -CPAP download reviewed with the patient and patient is complying with and benefitting from treatment. -Avoid driving, partaking in hazardous activities, or operating heavy machinery if drowsy. -Continue appropriate cleaning of the machine/humidifier and update of all supplies including mask, tubing, and filters. -Return for follow-up in 1 year. Return/call sooner if any problems arise in the meantime.
[2018-03-19 09:37] VITALS: BMI 43.2
--- NOTE | 2018-03-19 10:11 | History & Physical Report ---
History of Present Illness Date: 03/19/18 Chief complaint: + blood culture in Dr. Paul's office HPI: Patient is a 67-year-old male who is currently seeing Dr. Paul for CLL. Dr. Paul ordered a blood culture yesterday which is growing out an enterococcus species. Due to this finding, hospitalist service was consulted and patient is being admitted to the inpatient service for further workup and treatment. Patient had TAVR with Dr. Shelton in December. He reports over the last 2-3 weeks he' s become weaker and has had significantly more shortness of breath, especially with exertion. He's also been diaphoretic at rest and on exertion. His regular artificial breeding distributor is Dr. Galdamez, and he is currently out of town. Patient has a history of A. fib but is currently in normal sinus rhythm. He takes Pradaxa. Patient states he took a trip to [place] and came home on February 26. Around March 04, he noticed he was starting to feel weaker and more short of breath. He states he had a fall a week ago and EMS had to come help him up. Since that time he's been walking with a walker. Review of Systems All systems PM: 10-point ROS was reviewed, no additional remarkable complaints except (progressive weakness, progressive shortness of breath, diaphoresis, occasional wheeze, cough which is occasionally productive, bruising related to a fall a week ago.) Past Medical History Medical History Updates: Atrial fibrillation, COPD, arthritis, obstructive sleep apnea, CLL, hypertension, hyperlipidemia, diabetes mellitus- type II, S/P TAVR 12/25 Surgical History: TAVR - 12/25 (Dr. Shelton). Bilateral knee replacements. Umbilical hernia repair Family History: Father of an OR at age 82 Mother at age 80 of CHF And of pulmonary hypertension Brother of PE Family History: As Above - Social History Smoking status: Former smoker (quit 8 years ago. Smoked for 39 years anywhere from 1.5-3 packs per day) Substance use type: does not use Alcohol intake frequency: other (rare) Housing: house Household members: spouse Current occupational status: retired Social history: PCP-Dr. Salgado Oncologist-Dr. Paul Monitoring Analyst-Dr. Hero Galdamez Medications Home Medications Medication Instructions Recorded Confirmed Type Acetaminophen [Pain Relief] 1,000 mg PO Q6H PRN 03/19/18 03/19/18 History Aspirin 1 tab PO DAILY 03/19/18 03/19/18 History Atorvastatin [Lipitor] 1 tab PO 2200 03/19/18 03/19/18 History Budesonide/Formoterol 160/4.5 2 puff INH BID 03/19/18 03/19/18 History [Symbicort Inhaler] Dabigatran [Pradaxa] 1 cap PO BID 03/19/18 03/19/18 History Furosemide [Lasix] 1 tab PO DAILY 03/19/18 03/19/18 History Metformin [Glucophage] 1 tab PO 0800 03/19/18 03/19/18 History Metformin [Glucophage] 1 tab PO 2200 03/19/18 03/19/18 History Potassium Chloride [K-Tab ER] 10 meq PO 2200 03/19/18 03/19/18 History Tiotropium Handihaler [Spiriva] 18 mcg PO DAILY 03/19/18 03/19/18 History Ubidecarenone [Co Q-10] 100 mg PO BID 03/19/18 03/19/18 History dilTIAZem HCl [Diltiazem ER] 360 mg PO 2200 03/19/18 03/19/18 History Allergies Allergy/AdvReac Type Severity Reaction Status Date / Time lovastatin AdvReac Mild MADE BLOOD Verified 02/09/18 10:16 ENZYME GO CRAZY amlodipine besylate AdvReac Intermediate FELT VERY Uncoded 02/09/18 10:16 WEAK IN THE HEAT benazepril HCl AdvReac Intermediate FELT VERY Uncoded 02/09/18 10:16 WEAK IN THE HEAT Exam Vital Signs: Temperature 98 F 03/19/18 09:00 Pulse Rate 102 H 03/19/18 09:00 Respiratory Rate 36 H 03/19/18 09:00 Blood Pressure 136/84 03/19/18 09:00 Pulse Oximetry 91 03/19/18 09:00 Height/Weight/BMI: Height 1.73 m Weight 128.8 kg Body Mass Index 43.2 - Constitutional Present: no acute distress, well nourished, well developed - Routine HEENT Exam Head: Present: normocephalic, atraumatic Eye: Present: EOMI, PERRL ENT: Present: mucous membranes moist, oropharynx clear - Routine Neck Exam Present: supple. Absent: lymphadenopathy, thyromegaly - Routine Respiratory Exam Present: CTA bilaterally. Absent: wheezes Comments: Tachypnea - Routine Cardiovascular Exam Present: RRR, no murmur - Routine Abdominal Exam Present: soft, normoactive bowel sounds. Absent: tenderness, distended - Routine Extremities Exam Present: no edema, normal capillary refill - Routine Skin Exam Present: warm Comments: Diaphoretic Various areas of bruising, most prominent on right forearm - Routine Neurological Exam Present: alert, oriented X3, CN II-XII intact, normal speech. Absent: altered mental status - Routine Psychiatric Exam Present: normal affect, cooperative Results - Labs CBC & Chem 7: 03/19/18 09:18 03/19/18 09:12 Microbiology Results: 03/18/18-preliminary growth of enterococcus species Assessment and Plan (1) Bacteremia due to Enterococcus Current visit: Yes Status: Acute Assessment and Plan: Assessment Bacteremia-enterococcus species Sepsis-SIRS: Leukocytosis, tachypnea. Source: Possibly heart given recent valve replacement and symptoms. Lactate was normal. Valvular heart disease-S/P TAVR 12/25 - Dr Gomez (bovine valve) Normocytic anemia-POA Atrial fibrillation-Pradaxa (currently NSR) CLL Hypertension Hyperlipidemia COPD Diabetes, type II - takes metformin Osteoarthritis Obstructive sleep apnea -uses CPAP Plan Admit, inpatient. Stay expected to exceed 2 overnights given his bacteremia and recent TAVR and comorbidities as listed above. Labs on admission: CBC, CMP, CRP, blood culture 2, lactate. UA. Chest x-ray. EKG. Consult Dr. Ferreira regarding positive blood culture. Start vancomycin. Pharm consult. Consult Dr. Tobias for SHERMAN. Will keep patient NPO. Last ate at 7:30 this morning. Monitor on telemetry. IVF's for fluid maintenance. AccuChecks. SSI. Incentive spirometry and nebulizer equivalent of his home inhalers for COPD. His is bringing his CPAP from home. SCDs for DVT PPx. On Pradaxa. CODE STATUS: Full code PCP-Dr. Salgado DVT Prophylaxis: Pradaxa Resuscitation Status: Full Code - Physician Narrative Physician: Bibiana Benítez MD Narrative: Date: 03/19/18 Time: 1730 I have independently evaluated and examined this patient. I reviewed the chart, the patient's history, and the [employer] MAKE UP HELPER/PA's documented findings as above. We discussed and formulated the assessment and plan as above with additions as below: Mr. Swain was seen this morning shortly after arriving with his at bedside. He describes fevers intermittently for about a week with chills, increasing dyspnea-especially on exertion, and generalized weakness with one fall. He has not had cough or sputum production and has not had dysuria although has noted increased nocturia. His 30 day echocardiogram after TAVR was reported to be okay. NAD, alert; 2-3 cm hematoma palpable anterior scalp No splinter hemorrhages noted in the conjunctiva or nailbeds Respirations nonlabored, good airflow, faint crackles at the bases Regular rhythm, S1-S2 with very soft systolic murmur along the sternal border Blood culture 1 drawn yesterday positive for enterococcus-no sensitivities available. White count 28.3 with 42% lymphocytes; fairly typical white count for patient although lymphocytes often higher. CRP 134.2, lactic acid 1.7 UA unremarkable. Chest x-ray reviewed by myself demonstrating no focal pneumonia and mild vascular congestion. EKG also reviewed by myself demonstrating sinus rhythm with minor baseline artifact but no acute changes. Enterococcus bacteremia-blood cultures repeated, vancomycin initiated. SHERMAN obtained this afternoon without evidence of vegetation; preserved LV function, mild MR, trace AI. Discussed with Dr. Tobias, Dr. Ferreira, and Dr. Paul. Repeat blood cultures after 24 hours of antibiotics. Hospital Course Summary Disclaimer: The visit summary below is not to be considered part of the above Progress Note. Hospital Course: 03/19/18 Admit, inpatient. Stay expected to exceed 2 overnights given his bacteremia and recent TAVR and comorbidities as listed above. Labs on admission: CBC, CMP, CRP, blood culture 2, lactate. UA. Chest x-ray. EKG. Consult Dr. Ferreira regarding positive blood culture. Start vancomycin. Pharm consult. Consult Dr. Tobias for SHERMAN. Will keep patient NPO. Last ate at 7:30 this morning. Monitor on telemetry. IVF's for fluid maintenance. AccuChecks. SSI. Incentive spirometry and nebulizer equivalent of his home inhalers for COPD. His is bringing his CPAP from home. SCDs for DVT PPx. On Pradaxa. CODE STATUS: Full code PCP-Dr. Salgado
[2018-03-19] MEDS ORDERED: VANCOMYCIN - PHARMACY CONSULT MC ONE (10:30)
[2018-03-19] MEDS ORDERED: 1/2 NS 1,000 ML IV SCH (10:45)
[2018-03-19] MEDS ORDERED: INSULIN ASPART 100unit/ml INJECTION SQ PRN (10:46)
--- NOTE | 2018-03-19 10:57 | XRay Report ---
Indication: soa, bacteremia PROCEDURE: XR chest 1V: Encounter: Initial Comparison: None Findings: Multiple overlying monitoring the obscuring portions of the chest. Incidental note is made of an azygos fissure. Mild pulmonary vascular prominence without focal lobar pneumonia. No pneumothorax or pleural effusion. Heart size is normal. Cardiac valve replacement noted. Mediastinal contours are within normal limits. Impression: No focal pneumonia. Mild pulmonary vascular congestion or edema. .
--- NOTE | 2018-03-19 11:14 | Pharmacy Consult-Antibiotics ---
Pharmacy Consult-Vancomycin - Laboratory Information WBC 28.3 T/MM3 (4.5-11.0) H* 03/19/18 09:18 BUN 17.0 MG/DL (9-20) 03/19/18 09:12 Creatinine 0.9 mg/dL (0.8-1.5) 03/19/18 09:12 - Consult Information Vancomycin consult noted by Romeo VALVERDE for Mr Swain, who is 67 yrs old and weighs 128.8kg. He has a diagnosis of sepsis at this point. Will start vancomycin with a 2000mg IV loading dose followed by vancomycin 1250mg IV q8h. Will continue to monitor. Thank you.
--- NOTE | 2018-03-19 13:17 | Cardiology Consult Note ---
<Jaylene Harding - Last Filed: 03/19/18 16:29> History of Present Illness Consult date: 03/19/18 Chief complaint: fever History of present illness: This is a 67 yo male who follows with Dr. Paul for CLL, he presented at his office with fever and feeling unwell and was admitted following leukocytosis seen on lab. He underwent a TAVR 12/30/[address] Shelton, he denies any post op complications. He currently denies any chest pain, dyspnea, near syncope or palpitations. He was admitted to the hospital service here at [facility] and found to have bacteremia and sepsis with enterococcus species, he is currently on vancomycin. Dr. Tobias was consulted due to high suspicion of endocarditis. We plan a SHERMAN later today. The pt has a personal history of Afib for which he took warfarin but was unable to become therapeutic on it and changed to eliquis. He was taken off eliquis after his TAVR and placed back on Warfarin, his reports he again was unable to get a therapeutic INR even on 12mg daily. He was then started on Pradaxa 150mg bid. He has a long standing hx of HTN, HLD but denies CAD; COPD, DM2, DRU. Review of Systems All systems PM: 10-point ROS was reviewed, no additional remarkable complaints except - Constitutional Constitutional: Present: chills, fatigue, fever(s) - Cardiovascular Cardiovascular: Absent: chest pain, palpitations, syncope Rhythm: Present: abnormal rhythm - Respiratory Respiratory: Present: dyspnea. Absent: cough PFSH Patient Stated Medical History Cardiac Arrhythmia Yes: a fib Hypertension Yes Valvular Heart Disease Yes Chronic Obstructive Pulmonary Yes Disease (COPD) Sleep Apnea Yes Diabetes Mellitus Type 2 Yes Medical History Updates: Atrial fibrillation, COPD, arthritis, obstructive sleep apnea, CLL, hypertension, hyperlipidemia, diabetes mellitus- type II, S/P TAVR 12/25 Surgical History: TAVR - 12/25 (Dr. Shelton). Bilateral knee replacements. Umbilical hernia repair - Social History Smoking status: Former smoker (quit 8 years ago. Smoked for 39 years anywhere from 1.5-3 packs per day) Substance use type: does not use Alcohol intake frequency: other (rare) Housing: house Household members: spouse Current occupational status: retired Medications Home Medications Medication Instructions Recorded Confirmed Type Acetaminophen [Pain Relief] 1,000 mg PO Q6H PRN 03/19/18 03/19/18 History Aspirin 1 tab PO DAILY 03/19/18 03/19/18 History Atorvastatin [Lipitor] 1 tab PO 2200 03/19/18 03/19/18 History Budesonide/Formoterol 160/4.5 2 puff INH BID 03/19/18 03/19/18 History [Symbicort Inhaler] Dabigatran [Pradaxa] 1 cap PO BID 03/19/18 03/19/18 History Furosemide [Lasix] 1 tab PO DAILY 03/19/18 03/19/18 History Metformin [Glucophage] 1 tab PO 0800 03/19/18 03/19/18 History Metformin [Glucophage] 1 tab PO 2200 03/19/18 03/19/18 History Potassium Chloride [K-Tab ER] 10 meq PO 2200 03/19/18 03/19/18 History Tiotropium Handihaler [Spiriva] 18 mcg PO DAILY 03/19/18 03/19/18 History Ubidecarenone [Co Q-10] 100 mg PO BID 03/19/18 03/19/18 History dilTIAZem HCl [Diltiazem 24Hr ER] 360 mg PO 2200 03/19/18 03/19/18 History Ampicillin 6 gm IV .[id number] vial 03/23/18 Rx Ceftriaxone [Rocephin 2 GM] 2 gm IV Q12H vial 03/23/18 Rx Allergies Allergy/AdvReac Type Severity Reaction Status Date / Time amlodipine Allergy Unknown Unverified 03/23/18 14:08 benazepril Allergy Unknown Unverified 03/23/18 14:08 lovastatin AdvReac Mild MADE BLOOD Verified 02/09/18 10:16 ENZYME GO CRAZY amlodipine besylate AdvReac Intermediate FELT VERY Uncoded 02/09/18 10:16 WEAK IN THE HEAT benazepril HCl AdvReac Intermediate FELT VERY Uncoded 02/09/18 10:16 WEAK IN THE HEAT Exam Vital signs: Temperature 98 F 03/19/18 09:00 Pulse Rate 86 03/19/18 10:00 Respiratory Rate 36 H 03/19/18 09:00 Blood Pressure 136/84 03/19/18 09:00 Pulse Oximetry 91 03/19/18 09:00 - Constitutional no acute distress - Routine HEENT Exam Head: Present: normocephalic Results 03/19/18 09:18 03/19/18 09:12 Cardiac Enzymes 03/19/18 03/19/18 Range/Units 09:12 11:13 AST 50 (17-59) U/L Troponin I 0.048 (0-0.12) ng/ml CBC 03/19/18 Range/Units 09:18 WBC 28.3 H* (4.5-11.0) T/MM3 RBC 4.22 L (4.50-5.90) M/MM3 Hgb 12.0 L (13.5-17.5) GM/DL Hct 37.5 L (41-53) % Plt Count 131 (130-400) T/MM3 Neut # (Auto) Not performed Lymph # (Auto) Not performed Freeborn # (Auto) Not performed Eos # (Auto) Not performed Baso # (Auto) Not performed Comprehensive Metabolic Panel 03/19/18 Range/Units 09:12 Sodium 142 (136-146) MEQ/L Potassium 3.8 (3.6-5) MEQ/L Chloride 108 H (98-107) MEQ/L Carbon Dioxide 24 (22-30) MEQ/L BUN 17.0 (9-20) MG/DL Creatinine 0.9 (0.8-1.5) mg/dL Glucose 191 H (75-110) MG/DL Calcium 8.6 (8.4-10.2) MG/DL AST 50 (17-59) U/L ALT 48 (1-50) U/L Alkaline Phosphatase 116 (38-126) U/L Total Protein 6.2 L (6.3-8.2) g/dL Albumin 3.5 (3.5-5.0) g/dL Intake and Output 03/18/18 03/19/18 03/19/18 22:59 06:59 14:59 Intake Total 56.25 / 56.25 Balance 56.25 / 56.25 Intake: IV 56.25 / 56.25 1/2 Ns 1,000 ml @ 125 mls/hr IV 56.25 / 56.25 .Q8H [facility] Rx#:[id number] Oral 0 / 0 Other: Weight 128.8 kg Patient Weight 03/20/18 06:59 Weight 128.8 kg Assessment and Plan - Assessment and Plan (1) Sepsis Status: Acute (2) Aortic stenosis Status: Chronic (3) S/p TAVR (transcatheter aortic valve replacement), bioprosthetic Status: Chronic (4) HTN (hypertension), benign Status: Chronic (5) HLD (hyperlipidemia) Status: Chronic - Assessment and Plan 03/19/18: Proceeded with SHERMAN this afternoon, no valvular vegetation seen, no evidence of endocarditis. SHERMAN report pending. Restart home Pradaxa, despite his valve replacement the pt is not a warfarin candidate due to failure to obtain therapeutic INR x2. Monitor vitals and tele. Recommend resume home medical regimen Cardizem, lasix, ASA and lipitor. Hospital Course Summary Disclaimer: The visit summary below is not to be considered part of the above Progress Note. Hospital Course: 03/19/18 Admit, inpatient. Stay expected to exceed 2 overnights given his bacteremia and recent TAVR and comorbidities as listed above. Labs on admission: CBC, CMP, CRP, blood culture 2, lactate. UA. Chest x-ray. EKG. Consult Dr. Ferreira regarding positive blood culture. Start vancomycin. Pharm consult. Consult Dr. Tobias for SHERMAN. Will keep patient NPO. Last ate at 7:30 this morning. Monitor on telemetry. IVF's for fluid maintenance. AccuChecks. SSI. Incentive spirometry and nebulizer equivalent of his home inhalers for COPD. His is bringing his CPAP from home. SCDs for DVT PPx. On Pradaxa. CODE STATUS: Full code PCP-Dr. Salgado <Ernesto Tobias - Last Filed: 03/26/18 16:09> [facility] Patient Stated Medical History Cardiac Arrhythmia Yes: a fib Hypertension Yes Valvular Heart Disease Yes Chronic Obstructive Pulmonary Yes Disease (COPD) Sleep Apnea Yes Diabetes Mellitus Type 2 Yes Hx Renal Disease No Exam Vital signs: Temperature 96.2 F L 03/23/18 07:44 Pulse Rate 77 03/23/18 07:44 Respiratory Rate 20 03/23/18 07:44 Blood Pressure 135/71 03/23/18 07:44 Pulse Oximetry 93 03/23/18 07:44 Results 03/23/18 03:55 03/23/18 03:55 Assessment and Plan - Attestation Attestation Narrative: 03/26/18 16:09 Recommendation After examining the patient I agree with the above assessment. I am involved in the formulation of the patient's plan of care. - Assessment and Plan (1) Aortic stenosis Status: Chronic (2) S/p TAVR (transcatheter aortic valve replacement), bioprosthetic Status: Chronic (3) HTN (hypertension), benign Status: Chronic (4) HLD (hyperlipidemia) Status: Chronic (5) Sepsis Status: Acute Hospital Course Summary Disclaimer: The visit summary below is not to be considered part of the above Progress Note.
[2018-03-19] MEDS ORDERED: SALINE FLUSH 10ml SYRINGE ONE (14:40)
[2018-03-19] MEDS ORDERED: Ipratropium Inh NEB 0.02% (0.5mg/2.5ml) AEROSOL SCH (15:00)
[2018-03-19] MEDS ORDERED: ALBUTEROL/IPRATROPIUM 2.5mg-0.5mg/3ml NEB AEROSOL PRN (15:41)
[2018-03-19] MEDS: ARFORMOTEROL NEB 15mcg/2ml AEROSOL SCH (15:50)
[2018-03-19] MEDS ORDERED: ACETAMINOPHEN 500 MG TABLET PO PRN (15:57)
[2018-03-19] MEDS: BUDESONIDE INH.SOLN 0.5mg/2ml NEB AEROSOL SCH (16:00)
--- NOTE | 2018-03-19 16:19 | Transesophageal Echocardiogram ---
DATE OF PROCEDURE March 19, 2018 REFERRING PHYSICIAN Manuel Benítez MD INDICATIONS The patient is a 67-year-old gentleman who was admitted with bacteremia with history of transcatheter aortic valve replacement and was referred for further evaluation by transesophageal echocardiogram. INFORMED CONSENT Informed consent was obtained after explaining the procedure and the potential risks to the patient who agreed to proceed with the procedure. PROCEDURE 1. Transesophageal echocardiogram. Conscious sedation was performed using Versed and fentanyl. Cetacaine spray was used for pharyngeal anesthesia. Probe was advanced into the esophagus and stomach and images were obtained in multiple planes. Left atrium is dilated. Left ventricle end-diastolic dimension is normal. Left ventricular wall thickness is normal. LV systolic function is normal with ejection fraction of about 60%. Right atrium is normal. Right ventricle is normal. Mitral valve is morphologically normal with mild mitral regurgitation. Aortic valve is a bioprosthetic valve which is well seated with no stenosis. Trace of aortic insufficiency is present. Tricuspid valve shows mild tricuspid regurgitation. Pulmonary valve appears to be normal. There is no pericardial effusion. Agitated saline was injection injected which showed no evidence of [id number] shunt. Descending thoracic aorta appears to show mild to moderate atherosclerosis. IMPRESSION 1. Left atrial dilation. 2. No intracardiac thrombus or mass. 3. No evidence of vegetations. 4. Mild mitral regurgitation. 5. Normal LV systolic function with ejection fraction of about 60%. 6. Mild tricuspid regurgitation. 7. Bioprosthetic aortic valve with appropriate function and well seated with trace of aortic insufficiency. 8. Mild to moderate atherosclerosis of the descending thoracic aorta. MTDD
[2018-03-19] MEDS ORDERED: FentaNYL 100 MCG/2 ML INJECTION IVP ONE (16:43)
[2018-03-19] MEDS ORDERED: MIDAZOLAM 2mg/2ml INJECTION IVP ONE (16:43)
[2018-03-19] MEDS ORDERED: SALINE FLUSH 10ml SYRINGE IV ONE (16:43)
[2018-03-19] MEDS: SALINE FLUSH 10ml SYRINGE IV PRN (19:38)
[2018-03-19] MEDS ORDERED: METOCLOPRAMIDE 10mg/2ml INJECTION IVP PRN (19:40)
[2018-03-19] MEDS: ATORVASTATIN 10 MG TABLET PO SCH (21:04)
[2018-03-19] MEDS: DiltiaZEM CD 360 MG CAPSULE PO SCH (21:05)
[2018-03-19] MEDS ORDERED: METFORMIN 500 MG TABLET PO SCH (22:00)
[2018-03-20] MEDS: SALINE FLUSH 10ml SYRINGE IV PRN (04:00)
[2018-03-20] MEDS ORDERED: TIOTROPIUM 18mcg/cap HANDIHALER ORAL INH SCH (09:00)
[2018-03-20] MEDS: ASPIRIN 81 MG CHEWABLE TABLET PO SCH (09:20)
[2018-03-20] MEDS: METFORMIN 1,000 MG TABLET PO SCH (09:21)
[2018-03-20] MEDS: FUROSEMIDE 20 MG TABLET PO SCH (09:21)
[2018-03-20] MEDS: ARFORMOTEROL NEB 15mcg/2ml AEROSOL SCH ×2 (09:37→19:13)
[2018-03-20] MEDS: BUDESONIDE INH.SOLN 0.5mg/2ml NEB AEROSOL SCH ×2 (09:37→19:13)
--- NOTE | 2018-03-20 16:21 | Progress Note ---
- Date 03/20/18 Subjective: Mr. Swain was resting comfortably when seen this morning. He indicated that his energy is better compared to yesterday and denied having fever or chills overnight. He denied dyspnea, palpitations, or nausea. His appetite is good and he's having no pain. Objective Vital signs: Temperature 96 F L 03/20/18 12:00 Pulse Rate 81 03/20/18 12:00 Respiratory Rate 16 03/20/18 12:00 Blood Pressure 114/67 03/20/18 12:00 Pulse Oximetry 90 - RA 03/20/18 12:00 NAD, alert Conjunctiva clear, oropharynx clear Respirations nonlabored, good airflow, breath sounds clear Regular rhythm, S1-S2, very soft systolic murmur Abdomen soft, obese, nontender, bowel sounds present Degenerative changes and small joints of the hands Skin without generalized rash Rhythm: Normal Sinus Rhythm Height/Weight/BMI: Height 1.73 m Weight 129.9 kg Body Mass Index 43.2 Results - Labs CBC & Chem 7: 03/20/18 04:01 03/20/18 04:01 Labs: S40 B2 L50 M3 E1 Microbiology Results: Microbiology 03/19/18 09:13 Peripheral/Iv Start Gram Stain -gram-positive cocci present 03/19/18 09:13 Peripheral/Iv Start Blood Culture - Preliminary No Growth After 1 Day 03/19/18 09:12 Peripheral/Iv Start Blood Culture - Preliminary No Growth After 1 Day 03/18/18 blood culture-enterococcus, sensitivity pending Assessment and Plan (1) Bacteremia due to Enterococcus Current visit: Yes Status: Acute Assessment and Plan: Assessment Bacteremia-enterococcus species Sepsis-SIRS: Leukocytosis, tachypnea. Source: Possibly heart given recent valve replacement and symptoms. Lactate was normal. Valvular heart disease-S/P TAVR 12/25 - Dr Shelton (bovine valve) Normocytic anemia-POA Atrial fibrillation-Pradaxa (currently NSR) CLL Hypertension Hyperlipidemia COPD Diabetes, type II - takes metformin Osteoarthritis Obstructive sleep apnea - uses CPAP Plan: Vancomycin initiated 03/19 based on outpatient culture 03/18 positive for enterococcus. gyroscope technician reports repeat blood cultures 03/19 both appear to be positive for gram-positive cocci and sensitivity on original culture should be available tomorrow. Clinically patient improving by describe symptoms and improve strength. No recurrent fever since admission. Repeat blood cultures with morning labs. SHERMAN yesterday without evidence of vegetations. Blood sugars adequately controlled. Continue home medications for diabetes and atrial fibrillation. DVT Prophylaxis: Pradaxa Resuscitation Status: Full Code - Physician Narrative Narrative: Date: 03/20/18 Time: 1618 Hospital Course Summary Disclaimer: The visit summary below is not to be considered part of the above Progress Note. Hospital Course: 03/19/18 Admit, inpatient. Stay expected to exceed 2 overnights given his bacteremia and recent TAVR and comorbidities as listed above. Labs on admission: CBC, CMP, CRP, blood culture 2, lactate. UA. Chest x-ray. EKG. Consult Dr. Ferreira regarding positive blood culture. Start vancomycin. Pharm consult. Consult Dr. Tobias for SHERMAN. Will keep patient NPO. Last ate at 7:30 this morning. Monitor on telemetry. IVF's for fluid maintenance. AccuChecks. SSI. Incentive spirometry and nebulizer equivalent of his home inhalers for COPD. His is bringing his CPAP from home. SCDs for DVT PPx. On Pradaxa. CODE STATUS: Full code PCP-Dr. Salgado 03/20/18 Vancomycin initiated 03/19 based on outpatient culture 03/18 positive for enterococcus. gyroscope technician reports repeat blood cultures 03/19 both appear to be positive for gram-positive cocci and sensitivity on original culture should be available tomorrow. Clinically patient improving by describe symptoms and improve strength. No recurrent fever since admission. Repeat blood cultures with morning labs. SHERMAN yesterday without evidence of vegetations. Blood sugars adequately controlled. Continue home medications for diabetes and atrial fibrillation.
[2018-03-20] MEDS: ATORVASTATIN 10 MG TABLET PO SCH (21:28)
[2018-03-20] MEDS: DiltiaZEM CD 360 MG CAPSULE PO SCH (21:28)
[2018-03-20] MEDS: METFORMIN 500 MG TABLET PO SCH (21:29)
[2018-03-21] MEDS: FUROSEMIDE 20 MG TABLET PO SCH (08:45)
[2018-03-21] MEDS: METFORMIN 1,000 MG TABLET PO SCH (08:46)
[2018-03-21] MEDS: ASPIRIN 81 MG CHEWABLE TABLET PO SCH (08:46)
[2018-03-21] MEDS: BUDESONIDE INH.SOLN 0.5mg/2ml NEB AEROSOL SCH ×2 (10:10→19:53)
[2018-03-21] MEDS: ARFORMOTEROL NEB 15mcg/2ml AEROSOL SCH ×2 (10:10→19:53)
--- NOTE | 2018-03-21 10:25 | Pharmacy Note - Antibiotics ---
Pharmacy - Antibiotic Therapy - Laboratory Information Laboratory 03/19/18 03/20/18 03/21/18 09:12 04:01 03:38 Creatinine 0.9 0.7 L D 0.8 - Antibiotic Information CULTURE AND SENSITIVITY REVIEW: Organism: E. Faecalis Site: Kristal/IV Antibiotic: Vancomycin Sensitivity: M.I.C. = 2 Recommendation/Action: No changes for now. Thanks, Preston Melton, Pharmacist
--- NOTE | 2018-03-21 15:12 | Progress Note ---
- Date 03/21/18 Subjective: Mr. Swain was seen with his at bedside. He reports feeling significantly improved from admission. He denies recurrent fever or chills, has not been short of breath or had palpitations. He denied nausea or vomiting. He went for walk earlier today and was surprised that he was weaker than normal; he denies lightheadedness however Objective Vital signs: Temperature 96.6 F L 03/21/18 14:55 Pulse Rate 83 03/21/18 14:55 Respiratory Rate 20 03/21/18 14:55 Blood Pressure 117/66 03/21/18 14:55 Pulse Oximetry 94 - RA 03/21/18 14:55 Weight 131.1 kg-up 2.3 kg from admission NAD, alert Conjunctiva clear, sclera anicteric Respirations nonlabored, good airflow, breath sounds clear Regular rhythm, S1-S2 Abdomen soft, obese, nontender, bowel sounds present +1 edema bilateral lower extremities Rhythm: Normal Sinus Rhythm Height/Weight/BMI: Height 1.73 m Weight 131.1 kg Body Mass Index 43.2 Results - Labs CBC & Chem 7: 03/21/18 03:38 03/21/18 03:38 Labs: S33 B1 L61 M4 Microbiology Results: Microbiology 03/21/18 03:38 Peripheral/Iv Start Gram Stain - Preliminary 03/21/18 03:38 Peripheral/Iv Start Blood Culture - Preliminary 03/19/18 09:12 Peripheral/Iv Start Blood Culture - Final Enterococcus faecalis, ampicillin sensitive 03/19/18 09:13 Peripheral/Iv Start Gram Stain - Final 03/19/18 09:13 Peripheral/Iv Start Blood Culture - Final Enterococcus faecalis, ampicillin sensitive 03/21/18 03:38 Peripheral/Iv Start Blood Culture - Preliminary Culture Initiated - Results Pending 03/18/[address] Paul's office-positive Enterococcus faecalis, sensitive ampicillin with ERIC <2 Assessment and Plan (1) Bacteremia due to Enterococcus Current visit: Yes Status: Acute Assessment and Plan: Assessment Bacteremia-enterococcus species Sepsis-SIRS: Leukocytosis, tachypnea. Source: Possibly heart given recent valve replacement and symptoms. Lactate was normal. Valvular heart disease-S/P TAVR 12/25 - Dr Shelton (bovine valve) Normocytic anemia-POA Atrial fibrillation-Pradaxa (currently NSR) CLL Hypertension Hyperlipidemia COPD Diabetes, type II - takes metformin Osteoarthritis Obstructive sleep apnea - uses CPAP Plan: Vancomycin initiated 03/19 based on outpatient culture 03/18 positive for enterococcus-sensitive to ampicillin. Repeat cultures on 03/19 (prior to initiation of antibiotics) positive for Enterococcus faecalis, sensitive to ampicillin. Up-to-date recommends treatment of enterococcus bacteremia in the presence of a prosthetic valve as endocarditis even if SHERMAN negative. Continue vancomycin today pending formal ID evaluation tomorrow. Can potentially convert to ampicillin IV +/-ceftriaxone. Anticipate placement of PICC line. Will discuss with Dr. Ferreira tomorrow. Repeat cultures drawn this morning after patient has been on antibiotics approximately 42 hours. Repeat CRP in a.m. Leukocytosis/lymphocytosis consistent with CLL DVT Prophylaxis: Pradaxa Resuscitation Status: Full Code - Physician Narrative Narrative: Date: 03/21/18 Time: 1509 Hospital Course Summary Disclaimer: The visit summary below is not to be considered part of the above Progress Note. Hospital Course: 03/19/18 Admit, inpatient. Stay expected to exceed 2 overnights given his bacteremia and recent TAVR and comorbidities as listed above. Labs on admission: CBC, CMP, CRP, blood culture 2, lactate. UA. Chest x-ray. EKG. Consult Dr. Ferreira regarding positive blood culture. Start vancomycin. Pharm consult. Consult Dr. Tobias for SHERMAN. Will keep patient NPO. Last ate at 7:30 this morning. Monitor on telemetry. IVF's for fluid maintenance. AccuChecks. SSI. Incentive spirometry and nebulizer equivalent of his home inhalers for COPD. His is bringing his CPAP from home. SCDs for DVT PPx. On Pradaxa. CODE STATUS: Full code PCP-Dr. Salgado 03/20/18 Vancomycin initiated 03/19 based on outpatient culture 03/18 positive for enterococcus. tree trimming line technician reports repeat blood cultures 03/19 both appear to be positive for gram-positive cocci and sensitivity on original culture should be available tomorrow. Clinically patient improving by describe symptoms and improve strength. No recurrent fever since admission. Repeat blood cultures with morning labs. SHERMAN yesterday without evidence of vegetations. Blood sugars adequately controlled. Continue home medications for diabetes and atrial fibrillation. 03/21/18 Vancomycin initiated 03/19 based on outpatient culture 03/18 positive for enterococcus-sensitive to ampicillin. Repeat cultures on 8/10 (prior to initiation of antibiotics) positive for Enterococcus faecalis, sensitive to ampicillin. Up-to-date recommends treatment of enterococcus bacteremia in the presence of a prosthetic valve as endocarditis even if SHERMAN negative. Continue vancomycin today pending formal ID evaluation tomorrow. Can potentially convert to ampicillin IV +/-ceftriaxone. Anticipate placement of PICC line. Will discuss with Dr. Ferreira tomorrow. Repeat cultures drawn this morning after patient has been on antibiotics approximately 42 hours.
[2018-03-21] MEDS ORDERED: CEFTRIAXONE 2 GM INJECTION IM SCH (18:45)
[2018-03-21] MEDS ORDERED: CEFTRIAXONE 2 GM INJECTION IV SCH (19:12)
[2018-03-21] MEDS: AMPICILLIN 2 GM in NS 100 ML IV SCH ×2 (19:25→23:28)
[2018-03-21] MEDS: ATORVASTATIN 10 MG TABLET PO SCH (21:21)
[2018-03-21] MEDS: DiltiaZEM CD 360 MG CAPSULE PO SCH (21:21)
[2018-03-21] MEDS: METFORMIN 500 MG TABLET PO SCH (21:21)
[2018-03-21] MEDS ORDERED: FALL RISK - PHARMACY CONSULT MC ONE (22:43)
[2018-03-21] MEDS: SALINE FLUSH 10ml SYRINGE IV PRN (23:28)
[2018-03-22] MEDS: AMPICILLIN 2 GM in NS 100 ML IV SCH ×3 (03:18→11:29)
[2018-03-22] MEDS: SALINE FLUSH 10ml SYRINGE IV PRN (06:45)
[2018-03-22] MEDS: ARFORMOTEROL NEB 15mcg/2ml AEROSOL SCH ×2 (07:53→19:13)
[2018-03-22] MEDS: BUDESONIDE INH.SOLN 0.5mg/2ml NEB AEROSOL SCH ×2 (07:53→19:13)
[2018-03-22] MEDS: CEFTRIAXONE 2 GM in NS 100 ML IV SCH ×2 (08:43→20:23)
[2018-03-22] MEDS: METFORMIN 1,000 MG TABLET PO SCH (08:44)
[2018-03-22] MEDS: FUROSEMIDE 20 MG TABLET PO SCH (08:44)
[2018-03-22] MEDS: ASPIRIN 81 MG CHEWABLE TABLET PO SCH (08:44)
--- NOTE | 2018-03-22 08:47 | Infectious Disease Consult ---
Infectious Disease Consult Date of Consultation: 03/22/18 Requesting Physician: Bibiana Benítez Reason for Consultation: antibiotic recs History of Present Illness: Mr. Swain is a 67 y/o man with CLL followed by Dr. Paul. He also is s/p TAVR in December 2017. He reports that he started having fatigue and weakness around March 06. Also around that time he started having fevers, shaking chills, and sweats. About 10 days ago he fell at home in his bathroom and hit the top of his head against the wall. He was unable to get up on his own. He was seen by Dr. Paul on , March 18. A blood culture was drawn which returned positive for enterococcus. He was admitted on March 19. Blood cultures drawn March 19 were both positive for enterococcus faecalis sensitive to ampicillin. He underwent a SHERMAN which was negative for vegetations. He was initially started on vancomycin which was changed to ampicillin and ceftriaxone yesterday. He reports that he had increase in his usual nocturia recently. He states that he typically would wake up once per night to urinate but recently he describes urinating once an hour at night. He also reports that his urine was dark and "tea-colored". He reports that he's feeling quite a bit better after the antibiotics were started. He has not required any chemotherapy yet for his CLL. He denies any abdominal pain or change in bowel habits. He reports that he had a colonoscopy about 8 or 9 years ago. Medications Home Medications Medication Instructions Recorded Confirmed Type Acetaminophen [Pain Relief] 1,000 mg PO Q6H PRN 03/19/18 03/19/18 History Aspirin 1 tab PO DAILY 03/19/18 03/19/18 History Atorvastatin [Lipitor] 1 tab PO 2200 03/19/18 03/19/18 History Budesonide/Formoterol 160/4.5 2 puff INH BID 03/19/18 03/19/18 History [Symbicort Inhaler] Dabigatran [Pradaxa] 1 cap PO BID 03/19/18 03/19/18 History Furosemide [Lasix] 1 tab PO DAILY 03/19/18 03/19/18 History Metformin [Glucophage] 1 tab PO 0800 03/19/18 03/19/18 History Metformin [Glucophage] 1 tab PO 2200 03/19/1818 History Potassium Chloride [K-Tab ER] 10 meq PO 219903/19/18 03/19/18 History Tiotropium Handihaler [Spiriva] 18 mcg PO DAILY 03/19/18 03/19/18 History Ubidecarenone [Co Q-10] 100 mg PO BID 03/19/18 03/19/18 History dilTIAZem HCl [Diltiazem ER] 360 mg PO 219903/19/18 03/19/18 History Allergies Allergy/AdvReac Type Severity Reaction Status Date / Time lovastatin AdvReac Mild MADE BLOOD Verified 02/09/18 10:16 ENZYME GO CRAZY amlodipine besylate AdvReac Intermediate FELT VERY Uncoded 02/09/18 10:16 WEAK IN THE HEAT benazepril HCl AdvReac Intermediate FELT VERY Uncoded 02/09/18 10:16 WEAK IN THE HEAT [facility] Patient Stated Medical History Cardiac Arrhythmia Yes: a fib Hypertension Yes Valvular Heart Disease Yes Chronic Obstructive Pulmonary Yes Disease (COPD) Sleep Apnea Yes Diabetes Mellitus Type 2 Yes CLL Medical History Updates: Atrial fibrillation, COPD, arthritis, obstructive sleep apnea, CLL, hypertension, hyperlipidemia, diabetes mellitus- type II, S/P TAVR 12/25 Surgical History: TAVR - 12/25 (Dr. Shelton). Bilateral knee replacements. Umbilical hernia repair Family History: Father of an HI at age 82 Mother at age 80 of CHF Aunt of pulmonary hypertension Brother of PE - Social History Smoking status: Former smoker (quit 8 years ago. Smoked for 39 years anywhere from 1.5-3 packs per day) Substance use type: does not use Alcohol intake frequency: other (rare) Housing: house Household members: spouse Current occupational status: retired Current residence: Apartment/Private Home Review of Systems All systems PM: 10-point ROS was reviewed, no additional remarkable complaints except - Constitutional Constitutional: Present: chills, fatigue, fever(s), weakness. Absent: headache( s) - EENMT Eyes: Absent: change in vision - Cardiovascular Cardiovascular: Present: dyspnea on exertion. Absent: chest pain - Respiratory Respiratory: Absent: cough - Gastrointestinal Gastrointestinal: Absent: abdominal pain, diarrhea, nausea, vomiting - Genitourinary Genitourinary: Present: nocturia, urinary frequency. Absent: difficulty urinating, dysuria - Musculoskeletal Musculoskeletal: Absent: arthralgias, joint swelling - Integumentary/Breasts Integumentary: Absent: rash - Neurological Neurological: Absent: headache(s) - Hematologic/Lymphatic Hematologic/Lymphatic: Present: easy bruising Exam Vital Signs: Temperature 98.5 F 03/22/18 07:30 Pulse Rate 80 03/22/18 07:30 Respiratory Rate 18 03/22/18 07:54 Blood Pressure 133/85 03/22/18 07:30 Pulse Oximetry 94 03/22/18 07:54 Height/Weight/BMI: Height 1.73 m Weight 131.4 kg Body Mass Index 43.2 - Constitutional Present: no acute distress, well nourished, well developed - Routine HEENT Exam Head: Present: normocephalic, atraumatic, hematoma (on top of scalp) Eye: Present: EOMI, PERRL ENT: Present: mucous membranes moist, dentition normal - Routine Neck Exam Present: supple - Routine Respiratory Exam Present: CTA bilaterally. Absent: crackles - Routine Cardiovascular Exam Present: RRR (heart sounds distant) - Routine Abdominal Exam Present: soft, normoactive bowel sounds, non distended, non tender. Absent: rebound, guarding - Routine Exam Comments: no schaefer or bladder distention - Routine Extremities Exam Present: edema (1+ LEs). Absent: cyanosis, clubbing, joint swelling - Routine Skin Exam Absent: rash Comments: few scabs on LUE - Routine Neurological Exam Present: alert, oriented X3, CN II-XII intact, moving all extremities, normal speech. Absent: motor deficit - Routine Psychiatric Exam Present: normal affect, normal thought process Results - Labs CBC & Chem 7: 03/22/18 04:08 03/22/18 04:08 Microbiology Results: Microbiology 03/18/18 11:50 Peripheral/IV start Enterococcus faecalis S to Ampicillin 03/19/18 09:13 Peripheral/Iv Start Gram Stain - Final 03/19/18 09:13 Peripheral/Iv Start Blood Culture - Final Enterococcus faecalis S to Ampicillin 03/21/18 03:38 Peripheral/Iv Start Blood Culture - Preliminary No Growth After 1 Day 03/21/18 03:38 Peripheral/Iv Start Gram Stain - Preliminary 03/21/18 03:38 Peripheral/Iv Start Blood Culture - Preliminary 03/19/18 09:12 Peripheral/Iv Start Blood Culture - Final Enterococcus faecalis S to Ampicillin Impression: Sepsis, source unclear. Concern for endovascular source. Septicemia with E. faecalis, sensitive to ampicillin, blood cultures positive 03/18, 03/19. SHERMAN negative 03/19. Valvular heart disease s/p TAVR 12/25 - (bovine valve) Normocytic anemia Atrial fibrillation on Pradaxa CLL, not currently on therapy Hypertension Hyperlipidemia COPD Diabetes, type II, not IR Osteoarthritis Obstructive sleep apnea, on CPAP Recommendation: Will obtain a CT of the A/P to evaluate for possible GI or source. Recommend 6 weeks of Ampicillin 12 gm IV daily continuous infusion, and ceftriaxone 2gm IV q12. PICC has been ordered. Will check IgG level. He will need weekly CBC with diff, CMP and CRP while on the IV antibiotics. I discussed with him that we'll need to discuss with CM about how this antibiotic regimen could be done at home. It might be easier at SNU or rehab. Discussed with Dr. Benítez.
[2018-03-22] MEDS ORDERED: IOHEXOL 300mg/ml 100ml INJECTION ONE (09:31)
[2018-03-22] MEDS ORDERED: SALINE FLUSH 10ml SYRINGE ONE (09:32)
[2018-03-22] MEDS ORDERED: NS IV SCH ×2 (11:45→16:00)
[2018-03-22] MEDS ORDERED: AMPICILLIN IV SCH ×2 (11:45→16:00)
--- NOTE | 2018-03-22 12:28 | Cardiology Progress Note ---
<Callie Medel M - Last Filed: 03/22/18 19:20> Subjective Principal diagnosis: sepsis Interval history: Manuel is seen in follow up for sepsis, S/P TAVR in December. States he is feeling better. He denies chest pain, pressure, dyspnea, dizziness or nausea. Exam Vital signs: Temperature 98.5 F 03/22/18 07:30 Pulse Rate 80 03/22/18 07:30 Respiratory Rate 18 03/22/18 07:54 Blood Pressure 133/85 03/22/18 07:30 Pulse Oximetry 94 03/22/18 07:54 Inpatient Medications: Generic Name Dose Route Start Last Admin Trade Name Freq PRN Reason Stop Dose Admin Acetaminophen 1,000 mg 03/19/18 15:57 Tylenol PO Q6H PRN pain Albuterol/Ipratropium 3 ml 03/19/18 15:41 Duoneb AEROSOL RTQID PRN Arformoterol Tartrate 15 mcg 03/19/18 19:00 03/22/18 07:53 Brovana Neb AEROSOL 15 mcg RTBID [facility] Administration Aspirin 81 mg 03/20/18 09:00 03/22/18 08:44 Asa PO 81 mg DAILY [facility] Administration Atorvastatin Calcium 10 mg 03/19/18 22:00 03/21/18 21:21 Lipitor PO 10 mg 2200 [facility] Administration Budesonide 0.5 mg 03/19/18 19:00 03/22/18 07:53 Pulmicort Inhalation AEROSOL 0.5 mg RTBID [facility] Administration Dabigatran 150 mg 03/19/18 21:00 03/22/18 08:44 Pradaxa PO 150 mg BID [facility] Administration Diltiazem HCl 360 mg 03/19/18 22:00 03/21/18 21:21 Cardizem Cd 360 Mg PO 360 mg 2200 [facility] Administration Furosemide 20 mg 03/20/18 09:00 03/22/18 08:44 Lasix 20 Mg Tab PO 20 mg DAILY [facility] Administration Ampicillin Sodium 2 gm/ Sodium 100 mls @ 200 mls/hr 03/21/18 19:00 03/22/18 11:29 Chloride IV 03/22/18 17:00 200 mls/hr Q4H [facility] Administration Ceftriaxone Sodium 2 gm/ 100 mls @ 200 mls/hr 03/22/18 08:00 03/22/18 09:38 Sodium Chloride IV Infused Q12H [facility] Infusion Ampicillin Sodium 6 gm/ Sodium 250 mls @ 20.85 mls/hr 03/22/18 16:00 Chloride IV .Q12H [facility] Insulin Aspart 1 - 5 unit 03/19/18 10:46 Novolog SQ SS PRN Hyperglycemia Protocol Metformin HCl 1,000 mg 03/20/18 08:00 03/22/18 08:44 Glucophage PO 1,000 mg 0800 [facility] Administration Metformin HCl 500 mg 03/20/18 22:00 03/21/18 21:21 Glucophage PO 500 mg 2200 [facility] Administration Metoclopramide HCl 5 mg 03/19/18 19:40 Reglan IVP Q6H PRN Potassium Chloride 10 meq 03/19/18 22:00 03/21/18 21:21 K-Dur 10 Meq Tablet PO 10 meq 2200 [facility] Administration Sodium Chloride 10 - 80 ml 03/19/18 13:08 03/22/18 06:45 Iv Flush IV 10 ml PRN PRN Administration Flushing Discontinued Medications Generic Name Dose Route Start Last Admin Trade Name Freq PRN Reason Stop Dose Admin Budesonide/Formoterol Fumarate 2 puff 03/19/18 21:00 Symbicort Inhaler ORAL INH BID [facility] Ceftriaxone Sodium 2 gm 03/21/18 18:45 03/21/18 21:32 Rocephin 2 Gm IM Not Given Q12H [facility] Ceftriaxone Sodium 2 gm 03/21/18 19:12 03/21/18 20:31 Rocephin 2 Gm IV 2 gm Q12H [facility] Administration Dabigatran 150 mg 03/19/18 21:00 Pradaxa PO BID [facility] Sodium Chloride 1,000 mls @ 125 mls/hr 03/19/18 10:45 03/19/18 16:17 1/2 Normal Saline IV Infused .Q8H [facility] Infusion Vancomycin HCl 2,000 mg/ 500 mls @ 250 mls/hr 03/19/18 12:00 03/19/18 14:06 Sodium Chloride IV 03/19/18 13:59 Infused O ONE Infusion Vancomycin HCl 1,250 mg/ 250 mls @ 200 mls/hr 03/19/18 20:00 03/21/18 13:00 Sodium Chloride IV Infused Q8H [facility] Infusion Ampicillin Sodium 6 gm/ Sodium 250 mls @ 20.85 mls/hr 03/22/18 11:45 Chloride IV .Q12H [facility] Ipratropium [place] 0.5 mg 03/19/18 15:00 Atrovent (0.02%) AEROSOL RTQID [facility] Metformin HCl 500 mg 03/19/18 22:00 Glucophage PO 2200 [facility] Pharmacy Consult 1 each 03/21/18 22:43 Pharmacy Consult - Fall Risk 03/21/18 22:44 ONE TIME ONE Tiotropium [place] 1 cap 03/20/18 09:00 Spiriva ORAL INH DAILY [facility] Vancomycin HCl 1 each 03/19/18 10:30 03/19/18 11:02 Pharmacy Consult - Vancomycin 03/19/18 10:31 Not Given O ONE - Constitutional no acute distress, obese, cooperative - Routine HEENT Exam Head: Present: normocephalic ENT: Present: mucous membranes moist - Routine Neck Exam Absent: JVD, carotid bruit - Routine Chest/Breast/Axilla Exam Chest wall: Absent: tenderness - Routine Respiratory Exam Present: CTA bilaterally. Absent: dyspnea, rales, wheezes - Routine Cardiovascular Exam Present: RRR, S1, S2, no murmur - Routine Abdominal Exam Present: soft, non tender - Routine Extremities Exam Present: edema - Routine Skin Exam Present: intact, dry, warm - Routine Neurological Exam Present: alert, oriented X3 - Routine Psychiatric Exam Present: normal affect, normal thought process Results 03/22/18 04:08 03/22/18 04:08 CBC 03/22/18 Range/Units 04:08 WBC 23.4 H (4.5-11.0) T/MM3 RBC 3.91 L (4.50-5.90) M/MM3 Hgb 11.1 L (13.5-17.5) GM/DL Hct 35.6 L (41-53) % Plt Count 130 (130-400) T/MM3 Neut # (Auto) Not performed Lymph # (Auto) Not performed [place] # (Auto) Not performed Eos # (Auto) Not performed Baso # (Auto) Not performed Comprehensive Metabolic Panel 03/22/18 Range/Units 04:08 Sodium 141 (136-146) MEQ/L Potassium 3.8 (3.6-5) MEQ/L Chloride 108 H (98-107) MEQ/L Carbon Dioxide 25 (22-30) MEQ/L BUN 13.0 (9-20) MG/DL Creatinine 0.7 L (0.8-1.5) mg/dL Glucose 123 H (75-110) MG/DL Calcium 8.5 (8.4-10.2) MG/DL Intake and Output 03/21/18 03/22/18 03/22/18 22:59 06:59 14:59 Intake Total 900 / 900 300 / 300 440 / 440 Output Total 575 / 575 Balance 900 / 900 -275 / -275 440 / 440 Intake: IV 100 / 100 200 / 200 200 / 200 Ampicillin 2 gm In Ns 100 ml @ 100 / 100 200 / 200 100 / 100 200 mls/hr IV Q4H [facility] Rx#: [id number] Ceftriaxone 2 gm In Ns 100 ml @ 100 / 100 200 mls/hr IV Q12H [facility] Rx#: [id number] Oral 800 / 800 100 / 100 240 / 240 Output: Urine 575 / 575 Other: Urine Appearance Clear Urine Color Light Maya Urine Odor Normal # Voids 1 Weight 288 lb 2.307 oz 289 lb 10.998 oz Patient Weight 03/23/18 06:59 Weight 289 lb 10.998 oz - Imaging and Cardiology Imaging & Cardiology Narrative: Date of Exam: 03/19/18 Type of Exam(s): US carol w/ doppler DATE OF PROCEDURE March 19, 2018 REFERRING PHYSICIAN Manuel Benítez MD INDICATIONS The patient is a 67-year-old gentleman who was admitted with bacteremia with history of transcatheter aortic valve replacement and was referred for further evaluation by transesophageal echocardiogram. INFORMED CONSENT Informed consent was obtained after explaining the procedure and the potential risks to the patient who agreed to proceed with the procedure. PROCEDURE 1. Transesophageal echocardiogram. Conscious sedation was performed using Versed and fentanyl. Cetacaine spray was used for pharyngeal anesthesia. Probe was advanced into the esophagus and stomach and images were obtained in multiple planes. Left atrium is dilated. Left ventricle end-diastolic dimension is normal. Left ventricular wall thickness is normal. LV systolic function is normal with ejection fraction of about ??60%. Right atrium is normal. Right ventricle is normal. Mitral valve is morphologically normal with mild mitral regurgitation. Aortic valve is a bioprosthetic valve which is well seated with no stenosis. Trace of aortic insufficiency is present. Tricuspid valve shows mild tricuspid regurgitation. Pulmonary valve appears to be normal. There is no pericardial effusion. Agitated saline was injection injected which showed no evidence of [id number] shunt. Descending thoracic aorta appears to show mild to moderate atherosclerosis. IMPRESSION 1. Left atrial dilation. 2. No intracardiac thrombus or mass. 3. No evidence of vegetations. 4. Mild mitral regurgitation. 5. Normal LV systolic function with ejection fraction of about ??65%. 6. Mild tricuspid regurgitation. 7. Bioprosthetic aortic valve with appropriate function and well seated with trace of aortic insufficiency. 8. Mild to moderate atherosclerosis of the descending thoracic aorta. NOTE TO DR. JULIEN: Please see ??. In body of report, you say 60% EF, in impression you say 65%. Please clarify? Thanks! Demetria-recreation attendant supervisor 03/22/18 12:08 03/22/18 12:08 Date of Exam: 03/19/18 Ordering Provider: Julianna Jacobsen Type of Exam(s): XR chest 1V Reason for Exam(s): soa, bactermia Indication: soa, bacteremia PROCEDURE: XR chest 1V: Encounter: Initial Comparison: None Findings: Multiple overlying monitoring the obscuring portions of the chest. Incidental note is made of an azygos fissure. Mild pulmonary vascular prominence without focal lobar pneumonia. No pneumothorax or pleural effusion. Heart size is normal. Cardiac valve replacement noted. Mediastinal contours are within normal limits. Impression: No focal pneumonia. Mild pulmonary vascular congestion or edema. . Assessment and Plan - Assessment and Plan (1) Aortic stenosis Status: Chronic (2) S/p TAVR (transcatheter aortic valve replacement), bioprosthetic Status: Chronic (3) HTN (hypertension), benign Status: Chronic (4) HLD (hyperlipidemia) Status: Chronic (5) Sepsis Status: Acute - Assessment and Plan 03/19/18 Sepsis Current visit: Yes Status: Acute Aortic stenosis Current visit: Yes Status: Chronic S/p TAVR (transcatheter aortic valve replacement), bioprosthetic Current visit: Yes Status: Chronic - Proceeded with CAROL this afternoon, no valvular vegetation seen, no evidence of endocarditis. CAROL report pending. - Restart home Pradaxa, despite his valve replacement the pt is not a warfarin candidate due to failure to obtain therapeutic INR x2. - Monitor vitals and tele. - Recommend resume home medical regimen Cardizem, lasix, ASA and lipitor. HTN (hypertension), benign Current visit: Yes Status: Chronic HLD (hyperlipidemia) Current visit: Yes Status: Chronic 03/22/18 Hospital Course Summary Disclaimer: The visit summary below is not to be considered part of the above Progress Note. Hospital Course: 03/19/18 Admit, inpatient. Stay expected to exceed 2 overnights given his bacteremia and recent TAVR and comorbidities as listed above. Labs on admission: CBC, CMP, CRP, blood culture 2, lactate. UA. Chest x-ray. EKG. Consult Dr. Ferreira regarding positive blood culture. Start vancomycin. Pharm consult. Consult Dr. Julien for CAROL. Will keep patient NPO. Last ate at 7:30 this morning. Monitor on telemetry. IVF's for fluid maintenance. AccuChecks. SSI. Incentive spirometry and nebulizer equivalent of his home inhalers for COPD. His is bringing his CPAP from home. SCDs for DVT PPx. On Pradaxa. CODE STATUS: Full code PCP-Dr. Salgado 03/20/18 Vancomycin initiated 03/19 based on outpatient culture 03/18 positive for enterococcus. supply chain technician reports repeat blood cultures 03/19 both appear to be positive for gram-positive cocci and sensitivity on original culture should be available tomorrow. Clinically patient improving by describe symptoms and improve strength. No recurrent fever since admission. Repeat blood cultures with morning labs. CAROL yesterday without evidence of vegetations. Blood sugars adequately controlled. Continue home medications for diabetes and atrial fibrillation. 03/21/18 Vancomycin initiated 03/19 based on outpatient culture 03/18 positive for enterococcus-sensitive to ampicillin. Repeat cultures on 03/19 (prior to initiation of antibiotics) positive for Enterococcus faecalis, sensitive to ampicillin. Up-to-date recommends treatment of enterococcus bacteremia in the presence of a prosthetic valve as endocarditis even if CAROL negative. Continue vancomycin today pending formal ID evaluation tomorrow. Can potentially convert to ampicillin IV +/-ceftriaxone. Anticipate placement of PICC line. Will discuss with Dr. Ferreira tomorrow. Repeat cultures drawn this morning after patient has been on antibiotics approximately 42 hours. <Ernesto Julien - Last Filed: 03/29/18 14:21> Exam Vital signs: Temperature 96.2 F L 03/23/18 07:44 Pulse Rate 77 03/23/18 07:44 Respiratory Rate 20 03/23/18 07:44 Blood Pressure 135/71 03/23/18 07:44 Pulse Oximetry 93 03/23/18 07:44 Inpatient Medications: Discontinued Medications Generic Name Dose Route Start Last Admin Trade Name Freq PRN Reason Stop Dose Admin Acetaminophen 1,000 mg 03/19/18 15:57 Tylenol PO Q6H PRN pain Albuterol/Ipratropium 3 ml 03/19/18 15:41 Duoneb AEROSOL RTQID PRN Arformoterol Tartrate 15 mcg 03/19/18 19:00 03/23/18 07:18 Brovana Neb AEROSOL 15 mcg RTBID [facility] Administration Aspirin 81 mg 03/20/18 09:00 03/23/18 08:38 Asa PO 81 mg DAILY [facility] Administration Atorvastatin Calcium 10 mg 03/19/18 22:00 03/22/18 21:04 Lipitor PO 10 mg 2200 [facility] Administration Budesonide 0.5 mg 03/19/18 19:00 03/23/18 07:19 Pulmicort Inhalation AEROSOL 0.5 mg RTBID [facility] Administration Budesonide/Formoterol Fumarate 2 puff 03/19/18 21:00 Symbicort Inhaler ORAL INH BID [facility] Ceftriaxone Sodium 2 gm 03/21/18 18:45 03/21/18 21:32 Rocephin 2 Gm IM Not Given Q12H [facility] Ceftriaxone Sodium 2 gm 03/21/18 19:12 03/21/18 20:31 Rocephin 2 Gm IV 2 gm Q12H [facility] Administration Dabigatran 150 mg 03/19/18 21:00 Pradaxa PO BID [facility] Dabigatran 150 mg 03/19/18 21:00 03/23/18 08:37 Pradaxa PO 150 mg BID [facility] Administration Diltiazem HCl 360 mg 03/19/18 22:00 03/22/18 21:04 Cardizem Cd 360 Mg PO Not Given 2200 [facility] Furosemide 20 mg 03/20/18 09:00 03/23/18 08:38 Lasix 20 Mg Tab PO 20 mg DAILY [facility] Administration Sodium Chloride 1,000 mls @ 125 mls/hr 03/19/18 10:45 03/19/18 16:17 1/2 Normal Saline IV Infused .Q8H [facility] Infusion Vancomycin HCl 2,000 mg/ 500 mls @ 250 mls/hr 03/19/18 12:00 03/19/18 14:06 Sodium Chloride IV 03/19/18 13:59 Infused O ONE Infusion Vancomycin HCl 1,250 mg/ 250 mls @ 200 mls/hr 03/19/18 20:00 03/21/18 13:00 Sodium Chloride IV Infused Q8H [facility] Infusion Ampicillin Sodium 2 gm/ Sodium 100 mls @ 200 mls/hr 03/21/18 19:00 03/22/18 12:05 Chloride IV 03/22/18 14:59 Infused Q4H [facility] Infusion Ceftriaxone Sodium 2 gm/ 100 mls @ 200 mls/hr 03/22/18 08:00 03/23/18 09:15 Sodium Chloride IV Infused Q12H [facility] Infusion Ampicillin Sodium 6 gm/ Sodium 250 mls @ 20.85 mls/hr 03/22/18 11:45 Chloride IV .Q12H [facility] Ampicillin Sodium 6 gm/ Sodium 280 mls @ 23 mls/hr 03/22/18 15:00 03/23/18 15 :15 Chloride IV Infused .[id number] [facility] Infusion Immune Globulin 30 g/ Sodium 300 mls @ 0 mls/hr 03/22/18 15:29 03/23/18 00:37 Chloride IV 03/22/18 15:30 Infused .Q0M ONE Infusion Protocol Insulin Aspart 1 - 5 unit 03/19/18 10:46 Novolog SQ SS PRN Hyperglycemia Protocol Ipratropium [place] 0.5 mg 03/19/18 15:00 Atrovent (0.02%) AEROSOL RTQID [facility] Metformin HCl 500 mg 03/19/18 22:00 Glucophage PO 2200 [facility] Metformin HCl 1,000 mg 03/20/18 08:00 03/23/18 08:36 Glucophage PO 1,000 mg 0800 [facility] Administration Metformin HCl 500 mg 03/20/18 22:00 03/22/18 21:04 Glucophage PO 500 mg 2200 [facility] Administration Metoclopramide HCl 5 mg 03/19/18 19:40 Reglan IVP Q6H PRN Pharmacy Consult 1 each 03/21/18 22:43 03/22/18 12:36 Pharmacy Consult - Fall Risk 03/21/18 22:44 Not Given ONE TIME ONE Potassium Chloride 10 meq 03/19/18 22:00 03/22/18 21:04 K-Dur 10 Meq Tablet PO 10 meq 2200 [facility] Administration Sodium Chloride 10 - 80 ml 03/19/18 13:08 03/22/18 06:45 Iv Flush IV 10 ml PRN PRN Administration Flushing Tiotropium [place] 1 cap 03/20/18 09:00 Spiriva ORAL INH DAILY [facility] Vancomycin HCl 1 each 03/19/18 10:30 03/19/18 11:02 Pharmacy Consult - Vancomycin 03/19/18 10:31 Not Given O ONE Results 03/23/18 03:55 03/23/18 03:55 Assessment and Plan - Assessment and Plan (1) Aortic stenosis Status: Chronic (2) S/p TAVR (transcatheter aortic valve replacement), bioprosthetic Status: Chronic (3) HTN (hypertension), benign Status: Chronic (4) HLD (hyperlipidemia) Status: Chronic (5) Sepsis Status: Acute - Attestation Attestation Narrative: 03/29/18 14:21 Recommendation After examining the patient I agree with the above assessment. I am involved in the formulation of the patient's plan of care. Hospital Course Summary Disclaimer: The visit summary below is not to be considered part of the above Progress Note.
--- NOTE | 2018-03-22 14:17 | Progress Note ---
- Date 03/22/18 Subjective: Valeriy was seen this morning after breakfast, simultaneously with Dr. Ferreira. He states that he is feeling much better and is now able to ambulate through the halls without becoming weak, short of breath, or dizzy. He has a bump on his scalp from falling but states that it's getting softer. He denies any chest pain. He denies abdominal pain or GI complaints. His legs have been swollen for the last 3-4 weeks, and he notes that it hasn't helped that he's been sitting and often with his legs in the dependent position while here in the hospital. He actually inquires about going home and feels well enough to do so, if arrangements can be made for the necessary IV abx. Objective Vital signs: Temperature 98.5 F 03/22/18 07:30 Pulse Rate 80 03/22/18 07:30 Respiratory Rate 18 03/22/18 07:54 Blood Pressure 133/85 03/22/18 07:30 Pulse Oximetry 94 03/22/18 07:54 Rhythm: Normal Sinus Rhythm Height/Weight/BMI: Height 1.73 m Weight 131.4 kg Body Mass Index 43.2 - Constitutional Present: no acute distress, well nourished, well developed, morbidly obese - Routine HEENT Exam Head: Present: normocephalic Eye: Present: PERRL. Absent: conjunctival icterus, scleral injection ENT: Present: mucous membranes moist, oropharynx clear - Routine Respiratory Exam Present: CTA bilaterally - Routine Cardiovascular Exam Present: RRR, S1, S2 - Routine Abdominal Exam Present: soft, normoactive bowel sounds, non distended, non tender - Routine Extremities Exam Present: edema - Routine Musculoskeletal Exam Musculoskeletal: Present: moving extremities well - Routine Skin Exam Present: intact, dry, warm - Routine Neurological Exam Present: alert, oriented X3, normal speech. Absent: facial asymmetry - Routine Psychiatric Exam Present: normal affect, normal thought process, cooperative Results - Labs CBC & Chem 7: 03/22/18 04:08 03/22/18 04:08 Microbiology Results: Microbiology 03/19/18 09:13 Peripheral/Iv Start Gram Stain - Final 03/19/18 09:13 Peripheral/Iv Start Blood Culture - Final Enterococcus faecalis 03/21/18 03:38 Peripheral/Iv Start Blood Culture - Preliminary No Growth After 1 Day 03/21/18 03:38 Peripheral/Iv Start Gram Stain - Preliminary 03/21/18 03:38 Peripheral/Iv Start Blood Culture - Preliminary 03/19/18 09:12 Peripheral/Iv Start Blood Culture - Final Enterococcus faecalis Assessment and Plan (1) Bacteremia due to Enterococcus Current visit: Yes Status: Acute Assessment and Plan: Assessment Bacteremia-enterococcus species Sepsis-SIRS: Leukocytosis, tachypnea. Source: Possibly heart given recent valve replacement and symptoms. Lactate was normal. Valvular heart disease-S/P TAVR 12/25 - Dr Shelton (bovine valve) Normocytic anemia-POA Atrial fibrillation-Pradaxa (currently NSR) CLL Hypertension Hyperlipidemia COPD Diabetes, type II - takes metformin Osteoarthritis Obstructive sleep apnea - uses CPAP Plan: Per Dr. Ferreira: 6 weeks of Ampicillin 12 gm IV daily continuous infusion, and ceftriaxone 2gm IV q12. PICC has been ordered. Will check IgG level. He will need weekly CBC with diff, CMP and CRP while on the IV antibiotics. PICC placement today. Case management to look into discharge options such as home vs. SNF. WBC still elevated but declining (23.4) - hx of CLL. CRP has decreased from 134 to 42. Repeat BC are neg. at [address] chest/abd/pel done, results pending. IgG level low @ 523.93 BG under good control on metformin. Dr. Paul aware of treatment plan. D/W CM, Dr. Ferreira, Dr. Paul, and Dr. Benítez. DVT Prophylaxis: Pradaxa Resuscitation Status: Full Code - Physician Narrative Physician: Bibiana Benítez MD Narrative: Date: 03/22/18 Time: 1624 I have independently evaluated and examined this patient. I reviewed the chart, the patient's history, and the DENTAL CHAIR ASSEMBLER/PA's documented findings as above. We discussed and formulated the assessment and plan as above with additions as below: Mr. Swain was seen with his at bedside; he denies any concerns today and is anxious to discharge home. He reports no lightheadedness when he walks the halls and denies chest pain or palpitations. NAD, alert Respirations nonlabored, good airflow Regular rhythm, S1-S2 Repeat blood cultures negative; IgG level 524. CT chest, abdomen, pelvis reviewed by myself demonstrating aortic valve, mediastinal adenopathy, bilateral axillary adenopathy, retroperitoneal and mesenteric adenopathy, pelvic sidewall and permanent bilateral inguinal adenopathy; splenomegaly, and diverticulosis described as extensive per radiology present. No source for presenting infection identified. Patient has opted for outpatient antibiotic therapy which is being coordinated through [facility]. Discussed low IgG level with Dr. Ferreira and Dr. Paul-will treat with IVIG today prior to discharge tomorrow. Case management coordinating outpatient antibiotics and needed supplies in addition to home health to help with PICC care. Hospital Course Summary Disclaimer: The visit summary below is not to be considered part of the above Progress Note. Hospital Course: 03/19/18 Admit, inpatient. Stay expected to exceed 2 overnights given his bacteremia and recent TAVR and comorbidities as listed above. Labs on admission: CBC, CMP, CRP, blood culture 2, lactate. UA. Chest x-ray. EKG. Consult Dr. Ferreira regarding positive blood culture. Start vancomycin. Pharm consult. Consult Dr. Tobias for SHERMAN. Will keep patient NPO. Last ate at 7:30 this morning. Monitor on telemetry. IVF's for fluid maintenance. AccuChecks. SSI. Incentive spirometry and nebulizer equivalent of his home inhalers for COPD. His is bringing his CPAP from home. SCDs for DVT PPx. On Pradaxa. CODE STATUS: Full code PCP-Dr. Salgado 03/20/18 Vancomycin initiated 03/19 based on outpatient culture 03/18 positive for enterococcus. auto technician mechanic reports repeat blood cultures 03/19 both appear to be positive for gram-positive cocci and sensitivity on original culture should be available tomorrow. Clinically patient improving by describe symptoms and improve strength. No recurrent fever since admission. Repeat blood cultures with morning labs. SHERMAN yesterday without evidence of vegetations. Blood sugars adequately controlled. Continue home medications for diabetes and atrial fibrillation. 03/21/18 Vancomycin initiated 03/19 based on outpatient culture 03/18 positive for enterococcus-sensitive to ampicillin. Repeat cultures on 03/19 (prior to initiation of antibiotics) positive for Enterococcus faecalis, sensitive to ampicillin. Up-to-date recommends treatment of enterococcus bacteremia in the presence of a prosthetic valve as endocarditis even if SHERMAN negative. Continue vancomycin today pending formal ID evaluation tomorrow. Can potentially convert to ampicillin IV +/-ceftriaxone. Anticipate placement of PICC line. Will discuss with Dr. Ferreira tomorrow. Repeat cultures drawn this morning after patient has been on antibiotics approximately 42 hours. 03/22/[address] Ferreira: 6 weeks of Ampicillin 12 gm IV daily continuous infusion, and ceftriaxone 2gm IV q12. PICC has been ordered. Will check IgG level. He will need weekly CBC with diff, CMP and CRP while on the IV antibiotics. PICC placement today. Case management is coordinating outpatient antibiotics through [facility] per patient request. WBC still elevated but declining (23.4) - hx of CLL. CRP has decreased from 134 to 42. Repeat BC are neg. at [address] chest/abd/pel done, results pending. IgG level low @ 523.93--> IVIG today prior to discharge tomorrow. BG under good control on metformin.
--- NOTE | 2018-03-22 14:59 | CT Scan Report ---
Indication: sepsis, CLL PROCEDURE: CT chest abd/pelvis w con: Encounter: Initial Comparison: None. Automated Exposure Control and Iterative Reconstruction dose reducing techniques were utilized. CT CHEST: There is an accessory azygos fissure in the right lung apex. There is moderate mediastinal adenopathy as well as bilateral axillary adenopathy. The great vessels arise from the aorta and a normal manner. Heart size is normal. No pericardial effusion. No definite suspicious pulmonary mass lesion. No definite lobar consolidation or pleural effusion. No pericardial effusion. There is moderate degenerative disc disease of the thoracic spine. The vertebral body heights appear relatively well-preserved. CT ABDOMEN: The spleen is enlarged measuring 15.7 cm in length. There are some prominent lymph nodes in the region of the gastrohepatic ligament and deion hepatis. There are also enlarged retroperitoneal and mesenteric lymph nodes. The liver, spleen, kidneys, pancreas, and adrenal glands are normal. The abdominal aorta is nonaneurysmal with scattered calcific atherosclerotic disease. CT PELVIS: There is moderate distal colonic diverticulosis without evidence of diverticulitis. There is bilateral pelvic sidewall adenopathy and prominent bilateral inguinal lymph nodes. No free fluid. No definite bony destructive process. IMPRESSION: Fairly extensive adenopathy including bilateral axillary and mediastinal adenopathy, deion hepatis and gastrohepatic ligament, retroperitoneal and mesenteric adenopathy, pelvic sidewall, and bilateral inguinal adenopathy. Splenomegaly. .
[2018-03-22] MEDS: NS IV SCH (15:01)
[2018-03-22] MEDS: AMPICILLIN IV SCH (15:01)
[2018-03-22] MEDS ORDERED: RTU SALINE IV ONE (15:29)
[2018-03-22] MEDS ORDERED: IVIG PRIVIGEN IV ONE (15:29)
[2018-03-22] MEDS: DiltiaZEM CD 360 MG CAPSULE PO SCH ×2 (20:23→21:04)
[2018-03-22] MEDS: ATORVASTATIN 10 MG TABLET PO SCH (21:04)
[2018-03-22] MEDS: METFORMIN 500 MG TABLET PO SCH (21:04)
[2018-03-23 00:24] VITALS: RESP 20
[2018-03-23] MEDS: AMPICILLIN IV SCH (03:00)
[2018-03-23] MEDS: NS IV SCH (03:00)
[2018-03-23] MEDS: ARFORMOTEROL NEB 15mcg/2ml AEROSOL SCH (07:18)
[2018-03-23] MEDS: BUDESONIDE INH.SOLN 0.5mg/2ml NEB AEROSOL SCH (07:19)
[2018-03-23 07:45] VITALS: BP 135/71; PULSE 77; TEMP 96.2; O2SAT 93
[2018-03-23] MEDS: METFORMIN 1,000 MG TABLET PO SCH (08:36)
[2018-03-23] MEDS: CEFTRIAXONE 2 GM in NS 100 ML IV SCH (08:38)
[2018-03-23] MEDS: ASPIRIN 81 MG CHEWABLE TABLET PO SCH (08:38)
[2018-03-23] MEDS: FUROSEMIDE 20 MG TABLET PO SCH (08:38)
--- NOTE | 2018-03-23 10:34 | Discharge Summary ---
Discharge Information Date of admission: 03/19/18 08:34 Anticipated date of discharge: 03/23/18 Attending Physician: Bibiana Benítez MD Primary care physician: Ken Salgado MD Consults: Consulting Provider: Ernesto Tobias Reason For Exam: aortic valve (SHERMAN performed) Consulting Provider: Bharati Ferreira Reason For Exam: + BC Recommendations Recommend 6 weeks of Ampicillin 12 gm IV daily continuous infusion, and ceftriaxone 2gm IV q12. PICC has been ordered. He will need weekly CBC with diff, CMP and CRP while on the IV antibiotics. 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 INDICATIONS The patient is a 67-year-old gentleman who was admitted with bacteremia with history of transcatheter aortic valve replacement and was referred for further evaluation by transesophageal echocardiogram. Left atrium is dilated. Left ventricle end-diastolic dimension is normal. Left ventricular wall thickness is normal. LV systolic function is normal with ejection fraction of about 60%. Right atrium is normal. Right ventricle is normal. Mitral valve is morphologically normal with mild mitral regurgitation. Aortic valve is a bioprosthetic valve which is well seated with no stenosis. Trace of aortic insufficiency is present. Tricuspid valve shows mild tricuspid regurgitation. Pulmonary valve appears to be normal. There is no pericardial effusion. Agitated saline was injection injected which showed no evidence of [id number] shunt. Descending thoracic aorta appears to show mild to moderate atherosclerosis. IMPRESSION 1. Left atrial dilation. 2. No intracardiac thrombus or mass. 3. No evidence of vegetations. 4. Mild mitral regurgitation. 5. Normal LV systolic function with ejection fraction of about 60%. 6. Mild tricuspid regurgitation. 7. Bioprosthetic aortic valve with appropriate function and well seated with trace of aortic insufficiency. 8. Mild to moderate atherosclerosis of the descending thoracic aorta. - Laboratory Labs: Admission labs 03/19/18 03/19/18 03/19/18 09:12 09:12 09:18 WBC 28.3 H* RBC 4.22 L Hgb 12.0 L Hct 37.5 L Plt Count 131 Sodium 142 Potassium 3.8 Chloride 108 H Carbon Dioxide 24 BUN 17.0 Creatinine 0.9 Glucose 191 H C-Reactive Protein 134.2 H Dismissal labs 03/23/18 03/23/18 03:55 03:55 WBC 23.4 H RBC 3.79 L Hgb 10.7 L Hct 34.4 L Plt Count 128 L Sodium 141 Potassium 4.0 Chloride 106 Carbon Dioxide 26 BUN 13.0 Creatinine 0.9 D Glucose 116 H Calcium 8.7 IgG 03/22/18 04:08 IgG 523.93 L UA 03/19/18 10:49 Ur Collection Type Urine, void-cc/notcc Urine Color Yellow Urine Clarity Clear Urine pH 5.5 Ur Specific [place] 1.020 Urine Protein Negative Urine Glucose (UA) Negative Urine Ketones Negative Urine Occult Blood Trace-lysed Urine Nitrate Negative Urine Bilirubin Negative Urine Urobilinogen 4.0 A Ur Leukocyte Esterase Negative - Microbiology Microbiology 03/23/18 09:54 Port/Picc Gram Stain - Final Not performed 03/23/18 09:56 Port/Picc Gram Stain - Final Not performed 03/21/18 03:38 Peripheral/Iv Start Gram Stain -gram-positive cocci in chains 03/21/18 03:38 Peripheral/Iv Start Blood Culture - Preliminary Enterococcus species 03/21/18 03:38 Peripheral/Iv Start Gram Stain - Final 03/21/18 03:38 Peripheral/Iv Start Blood Culture - Preliminary Enterococcus species 03/19/18 09:13 Peripheral/Iv Start Gram Stain -gram-positive cocci 03/19/18 09:13 Peripheral/Iv Start Blood Culture - Final Enterococcus faecalis 03/19/18 09:12 Peripheral/Iv Start Blood Culture - Final Enterococcus faecalis - Radiology Radiology: Date of Exam: 03/22/18 Indication: sepsis, CLL PROCEDURE: CT chest abd/pelvis w con: CT CHEST: There is an accessory azygos fissure in the right lung apex. There is moderate mediastinal adenopathy as well as bilateral axillary adenopathy. The great vessels arise from the aorta and a normal manner. Heart size is normal. No pericardial effusion. No definite suspicious pulmonary mass lesion. No definite lobar consolidation or pleural effusion. No pericardial effusion. There is moderate degenerative disc disease of the thoracic spine. The vertebral body heights appear relatively well-preserved. CT ABDOMEN: The spleen is enlarged measuring 15.7 cm in length. There are some prominent lymph nodes in the region of the gastrohepatic ligament and deion hepatis. There are also enlarged retroperitoneal and mesenteric lymph nodes. The liver, spleen, kidneys, pancreas, and adrenal glands are normal. The abdominal aorta is nonaneurysmal with scattered calcific atherosclerotic disease. CT PELVIS: There is moderate distal colonic diverticulosis without evidence of diverticulitis. There is bilateral pelvic sidewall adenopathy and prominent bilateral inguinal lymph nodes. No free fluid. No definite bony destructive process. IMPRESSION: Fairly extensive adenopathy including bilateral axillary and mediastinal adenopathy, deion hepatis and gastrohepatic ligament, retroperitoneal and mesenteric adenopathy, pelvic sidewall, and bilateral inguinal adenopathy. Splenomegaly. Date of Exam: 03/19/18 Indication: soa, bacteremia PROCEDURE: XR chest 1V: Findings: Multiple overlying monitoring the obscuring portions of the chest. Incidental note is made of an azygos fissure. Mild pulmonary vascular prominence without focal lobar pneumonia. No pneumothorax or pleural effusion. Heart size is normal. Cardiac valve replacement noted. Mediastinal contours are within normal limits. Impression: No focal pneumonia. Mild pulmonary vascular congestion or edema. History of Present Illness HPI: Patient is a 67-year-old male who is currently seeing Dr. Paul for CLL. Dr. Paul ordered a blood culture yesterday which is growing out an enterococcus species. Due to this finding, hospitalist service was consulted and patient is being admitted to the inpatient service for further workup and treatment. Patient had TAVR with Dr. Shelton in December. He describes fevers intermittently for about a week with chills, increasing dyspnea-especially on exertion, and generalized weakness with one fall. He has not had cough or sputum production and has not had dysuria although has noted increased nocturia. He reports over the last 2-3 weeks he's become weaker. He's also been diaphoretic at rest and on exertion. His regular deicer repairer is Dr. Galdamez. Patient has a history of A. fib but is currently in normal sinus rhythm. He takes Pradaxa. Patient states he took a trip to [place] and came home on February 26. Around March 04, he noticed he was starting to feel weaker and more short of breath. He states he had a fall a week ago and EMS had to come help him up. Since that time he's been walking with a walker. Objective Vital signs: Temperature 96.2 F L 03/23/18 07:44 Pulse Rate 77 03/23/18 07:44 Respiratory Rate 20 03/23/18 07:44 Blood Pressure 135/71 03/23/18 07:44 Pulse Oximetry 93 03/23/18 07:44 Height/Weight/BMI: Height 1.73 m Weight 130.1 kg Body Mass Index 43.2 - Constitutional Present: no acute distress, well nourished, well developed - Routine HEENT Exam Head: Present: normocephalic, atraumatic - Routine Respiratory Exam Present: CTA bilaterally. Absent: wheezes - Routine Cardiovascular Exam Present: RRR, no murmur - Routine Abdominal Exam Present: soft, non distended, non tender - Routine Extremities Exam Present: edema, normal capillary refill - Routine Skin Exam Present: dry, warm - Routine Neurological Exam Present: alert, oriented X3 - Routine Lymphatic Exam Lymphatic: Absent: adenopathy - Routine Psychiatric Exam Present: normal affect, cooperative Hospital Course This is a general summary of the patient's hospital course. For more details refer to the complete medical record. Hospital course: 03/19/18 Admit, inpatient. Stay expected to exceed 2 overnights given his bacteremia and recent TAVR and comorbidities as listed above. Consult Dr. Ferreira regarding positive blood culture. Start vancomycin. Pharm consult. Consult Dr. Tobias for SHERMAN. Monitor on telemetry. Incentive spirometry and nebulizer equivalent of his home inhalers for COPD. His is bringing his CPAP from home. CODE STATUS: Full code PCP-Dr. Salgado 03/20/18 Vancomycin initiated 03/19 based on outpatient culture 03/18 positive for enterococcus. emergency medical technician basic reports repeat blood cultures 03/19 both appear to be positive for gram-positive cocci and sensitivity on original culture should be available tomorrow. Clinically patient improving by describe symptoms and improve strength. No recurrent fever since admission. Repeat blood cultures with morning labs. SHERMAN yesterday without evidence of vegetations. Blood sugars adequately controlled. Continue home medications for diabetes and atrial fibrillation. 03/21/18 Vancomycin initiated 03/19 based on outpatient culture 03/18 positive for enterococcus-sensitive to ampicillin. Repeat cultures on 03/19 (prior to initiation of antibiotics) positive for Enterococcus faecalis, sensitive to ampicillin. Up-to-date recommends treatment of enterococcus bacteremia in the presence of a prosthetic valve as endocarditis even if SHERMAN negative. Continue vancomycin today pending formal ID evaluation tomorrow. Can potentially convert to ampicillin IV +/-ceftriaxone. Anticipate placement of PICC line. Will discuss with Dr. Ferreira tomorrow. Repeat cultures drawn this morning after patient has been on antibiotics approximately 42 hours. 03/22/[address] Ferreira: 6 weeks of Ampicillin 12 gm IV daily continuous infusion, and ceftriaxone 2gm IV q12. He will need weekly CBC with diff, CMP and CRP while on the IV antibiotics. PICC placement today. IgG level low @ 523.93-->will treat with IVIG today WBC still elevated but declining (23.4) - hx of CLL. CRP has decreased from 134 to 42. Repeat BC are neg. at [address] chest/abd/pelvis done showing no source for infection. BG under good control on metformin. 03/23/18 DC home today. [place] meeting with patient/ today and he will have home health for PICC cares and labs. His BC from 03/21/18 came back this am still + for entercoccus species. Discussed with Dr. Ferreira. BC are drawn again today. Assuming BC's from today are neg, he will need to continue ampicillin and ceftriaxone 6 wks from today. He'll see Dr. Ferreira in 2-3 weeks for f-u. Time spent with patient: discharge greater than 30 minutes Resuscitation Status: Full Code Discharge Plan - Discharge Disposition Discharge Date: 03/23/18 Disposition: 86 Home Health Service *Condition: Stable Reason For Visit (Visit label in EMR): Positive blood culture - Discharge Medications *Discharge Medications: New Ampicillin 6 gm IV .[id number] vial Ceftriaxone [Rocephin 2 GM] 2 gm IV Q12H vial Continue Tiotropium Handihaler [Spiriva] 18 mcg PO DAILY Potassium Chloride [K-Tab ER] 10 meq PO 2200 Metformin [Glucophage] 1 tab PO 2200 Furosemide [Lasix] 1 tab PO DAILY dilTIAZem HCl [Diltiazem 24Hr ER] 360 mg PO 2200 Atorvastatin [Lipitor] 1 tab PO 2200 Aspirin 1 tab PO DAILY Acetaminophen [Pain Relief] 1,000 mg PO Q6H PRN PRN Reason: pain Ubidecarenone [Co Q-10] 100 mg PO BID Budesonide/Formoterol 160/4.5 [Symbicort Inhaler] 2 puff INH BID Metformin [Glucophage] 1 tab PO 0800 Dabigatran [Pradaxa] 1 cap PO BID - Discharge Packet/Instructions *Diet: Heart healthy, low salt, 2000 calorie diabetic diet *Activity: As tolerated *Pain Management/Treatment: n/a *Wound Care: n/a Additional Instructions: Dr Ferreira has given orders for home health to draw your labs weekly and those results will be sent to her office. If the blood cultures drawn today are negative, you will continue antibiotics for [address] Ferreira will give you further instructions at your follow up appointment if there are any changes. *Expected Signs/Symptoms: Continued increase in strength *Notify Physician if: You develop a fever, chest pain or increasing shortness of breath *During Business Hours Contact: Dr. Salgado's office *After Business Hours Contact: [facility] and have your doctor paged. *Pending Lab/Results: Follow up w/Provider (Dr Ferreira (blood cultures drawn today )) - Referrals/Follow Up *Referrals/Follow Up: Bharati Ferreira MD [Physician] - 2 Weeks (Schedule at her office in [place].) Ken Salgado MD [Primary Care Provider] - 1 Week - Patient Handouts Patient Handouts: Transthoracic Echocardiogram (GEN), Transesophageal Echocardiogram (GEN) - Dismissal Complete Discharge Instructions are:: Complete Physician Narrative - Narrative Physician: Bibiana Benítez MD Attestation Narrative: Date: 03/23/18 Time: Noon I have independently evaluated and examined this patient. I reviewed the chart, the patient's history, and the REFERRAL MANAGEMENT LIAISON/PA's documented findings as above. We discussed and formulated the assessment and plan as above with additions as below: Mr. Swain reported that he was ready to go when seen a couple of hours ago. He denied dyspnea or palpitations. Blood cultures drawn 03/21 were reported positive this morning; enterococcus again reported. Patient indicates he is improved and CRP has dropped significantly with antibiotic therapy. Repeat blood cultures drawn after I was alerted to positive cultures 03/21. NAD, alert; respirations nonlabored, regular rhythm, S1-S2 Knees without erythema or warmth Stable for discharge at this time. Patient in his are aware that antibiotics will continue for 6 weeks from the date of first negative blood cultures and as such final date is not yet known. Dr. Ferreira notified of positive cultures 03/21. Continue continuous ampicillin/ceftriaxone as previously prescribed.
[2018-03-23] MEDS ORDERED: PROPOFOL 500 MG/50 ML VIAL ONE (11:47)
== END 2018-03-23 15:50 | disposition home health service (06) | DRG 314 ==
LOC: MED 08:06
PROVIDERS: ADMIT Internal Medicine; ATTEND Internal Medicine